=== PATIENT | female | born 1945 | race African-American/Black ===

== ENCOUNTER 2017-09-16 18:12 | Inpatient (IN) ==
[2017-09-16] MEDS ORDERED: ACETAMINOPHEN 325 MG TABLET PO ONE (18:40)
[2017-09-16] MEDS ORDERED: cefTRIAXone 1,000 MG in SODIUM CHLORIDE 0.9% 100 ML IV STA (18:50)
[2017-09-16] MEDS ORDERED: ACETAMINOPHEN 325 MG TABLET ONE (19:06)
[2017-09-16] MEDS ORDERED: cefTRIAXone 1,000 MG VIAL ONE (19:07)
[2017-09-16 19:46] LABS: Basophils % 0.3 % (0.0-0.8); Eosinophils # 0.1 10*3/uL (0.0-0.87); Eosinophils % 1.9 % (0.00-10.9); Hematocrit 32.9 VOL% (35.7-47.0); Immature Granulocytes % 0.5 %; Immature Granulocytes Absolute 0.03 #; Lymphocytes # 1.2 10*3/uL (1.4-4.0); Mean Corpuscular HGB Conc 33.4 GM/DL (32-36); Mean Corpuscular Hemoglobin 32 PG (27-34); Mean Corpuscular Volume 96.8 FL (87-102); Mean Platelet Volume 10.9 FL (9.6-12.0); Monocytes # 0.6 10*3/uL (0.11-0.8); Neutrophils # 4.4 10*3/uL (1.4-7.4); Neutrophils % 68.3 % (38.7-73.9); Platelet Count 224 T/CUMM (130-400); Red Cell Distribution Width 14.6 % (9.3-17.3); White Blood Count 6.4 T/CUMM (4-12)
[2017-09-16 20:15] LABS: Blood Urea Nitrogen 42 MG/DL (7-18); Glucose 88 MG/DL (74-106); Magnesium 1.6 MG/DL (1.8-2.4); Osmolality,Calculated 288.4 MOS/KG (273-304); Potassium 3.4 MMOL/L (3.5-5.1); Sodium 140 MMOL/L (136-145); Troponin I Only 0.065 NG/ML (0.00-0.045)
[2017-09-16] MEDS ORDERED: ONDANSETRON 4 MG/2 ML VIAL IV PRN (20:39)
[2017-09-16] MEDS ORDERED: ACETAMINOPHEN 325 MG TABLET PO PRN (20:39)
[2017-09-16] MEDS ORDERED: NIFEdipine 10 MG CAPSULE PO PRN (20:39)
[2017-09-16] MEDS: SODIUM CHLORIDE 0.9% 1,000 ML IV SCH (22:05)
[2017-09-16] MEDS: ENOXAPARIN 30 MG/0.3 ML SYRINGE SUBCUT SCH (22:06)
[2017-09-16] MEDS: CARVEDILOL 12.5 MG TABLET PO SCH (22:06)
[2017-09-16] MEDS: amLODIPine 10 MG TABLET PO SCH (22:06)
[2017-09-17 04:59] LABS: Basophils % 0.6 % (0.0-0.8); Eosinophils # 0.3 10*3/uL (0.0-0.87); Eosinophils % 5.4 % (0.00-10.9); Hematocrit 27.4 VOL% (35.7-47.0); Hemoglobin 8.9 GM/DL (12.0-16.0); Immature Granulocytes % 0.2 %; Immature Granulocytes Absolute 0.01 #; Lymphocytes # 1.2 10*3/uL (1.4-4.0); Lymphocytes % 24.4 % (21.3-54.2); Mean Corpuscular HGB Conc 32.5 GM/DL (32-36); Mean Corpuscular Hemoglobin 32 PG (27-34); Mean Corpuscular Volume 98.2 FL (87-102); Mean Platelet Volume 10.6 FL (9.6-12.0); Monocytes # 0.8 10*3/uL (0.11-0.8); Monocytes % 15.7 % (1.7-12.7); Neutrophils # 2.7 10*3/uL (1.4-7.4); Neutrophils % 53.7 % (38.7-73.9); Platelet Count 176 T/CUMM (130-400); Red Blood Count 2.79 MC/CUMM (3.8-5.5); Red Cell Distribution Width 14.6 % (9.3-17.3)
[2017-09-17 05:33] LABS: INR 1.1; PT Patient Result 11.5 SECS
[2017-09-17 05:44] LABS: Calcium 7.9 MG/DL (8.5-10.1); Osmolality,Calculated 292.3 MOS/KG (273-304); Potassium 2.9 MMOL/L (3.5-5.1)
[2017-09-17 05:50] LABS: Troponin I Only 0.089 NG/ML (0.00-0.045)
[2017-09-17 06:00] LABS: Band Neutrophils 1 % (0-10); Eosinophils 5 % (0-10); Hypochromasia 1+; Lymphocytes 19 % (20-55); Segmented Neutrophils 67 % (50-85); Total Cells Counted 100
[2017-09-17 06:01] LABS: Platelet Estimate Adequate
[2017-09-17] MEDS: CARVEDILOL 12.5 MG TABLET PO SCH ×2 (08:48→20:57)
[2017-09-17] MEDS: amLODIPine 10 MG TABLET PO SCH (08:48)
[2017-09-17] MEDS: cefTRIAXone 1,000 MG in SYRINGE 1 EACH IV SCH (08:49)
[2017-09-17] MEDS: SODIUM CHLORIDE 0.9% 1,000 ML IV SCH (10:46)
[2017-09-17] MEDS: POTASSIUM CHLORIDE 20 MEQ TABLET PO SCH ×3 (13:37→20:57)
[2017-09-17] MEDS: ENOXAPARIN 30 MG/0.3 ML SYRINGE SUBCUT SCH (20:57)
[2017-09-18] MEDS: SODIUM CHLORIDE 0.9% 1,000 ML IV SCH (01:47)
[2017-09-18] MEDS: POTASSIUM CHLORIDE 20 MEQ TABLET PO SCH (01:47)
[2017-09-18 02:35] LABS: Basophils % 0.6 % (0.0-0.8); Eosinophils # 0.5 10*3/uL (0.0-0.87); Eosinophils % 10.8 % (0.00-10.9); Hematocrit 25.7 VOL% (35.7-47.0); Hemoglobin 8.4 GM/DL (12.0-16.0); Immature Granulocytes % 0.2 %; Immature Granulocytes Absolute 0.01 #; Lymphocytes # 1.6 10*3/uL (1.4-4.0); Mean Corpuscular HGB Conc 32.7 GM/DL (32-36); Mean Corpuscular Hemoglobin 33 PG (27-34); Mean Platelet Volume 11.3 FL (9.6-12.0); Monocytes # 0.7 10*3/uL (0.11-0.8); Neutrophils # 2.2 10*3/uL (1.4-7.4); Neutrophils % 44.4 % (38.7-73.9); Platelet Count 179 T/CUMM (130-400); Red Blood Count 2.57 MC/CUMM (3.8-5.5); Red Cell Distribution Width 14.8 % (9.3-17.3)
[2017-09-18 03:04] LABS: Calcium 7.7 MG/DL (8.5-10.1); Magnesium 1.4 MG/DL (1.8-2.4); Osmolality,Calculated 295.8 MOS/KG (273-304); Potassium 3.6 MMOL/L (3.5-5.1)
[2017-09-18] MEDS: cefTRIAXone 1,000 MG in SYRINGE 1 EACH IV SCH (09:15)
[2017-09-18] MEDS: amLODIPine 10 MG TABLET PO SCH (09:16)
[2017-09-18] MEDS: CARVEDILOL 12.5 MG TABLET PO SCH ×2 (09:16→21:25)
[2017-09-18] MEDS ORDERED: MAGNESIUM SULF RIDER 4 GM in PREMIX 1 EACH IV ONE (12:06)
[2017-09-18] MEDS: FUROSEMIDE 40 MG/4 ML VIAL IV SCH (12:28)
[2017-09-18 15:28] LABS: Apearance,Urine CLEAR (Clear); Bacteria,Urine Occasional /HPF (Few); Bilirubin,Urine Negative (Negative); Blood, Urine Small mg/dL (Negative); Glucose,Urine (UA) Negative (Negative); Ketones,Urine Negative (Negative); Nitrite,Urine Negative (Negative); Protein,Urine Negative; RBC,Urine 1 /HPF (0-4); Squamous Epithelial Cell,Urine Occasional /HPF (0-10); Urine Color Straw (Yellow); Urine Specific Gravity 1.005 (1.001-1.035); Urine Urobilinogen < 2.0 EU/DL (0.2-1.0); WBC,Urine 5 /HPF (0-6)
[2017-09-18] MEDS: ASPIRIN 325 MG TABLET PO SCH (16:05)
[2017-09-18] MEDS: miSOPROStol 200 MCG TABLET PO SCH ×2 (16:10→21:25)
[2017-09-18] MEDS: ENOXAPARIN 30 MG/0.3 ML SYRINGE SUBCUT SCH (21:25)
[2017-09-19 05:33] LABS: Basophils % 0.4 % (0.0-0.8); Eosinophils # 0.6 10*3/uL (0.0-0.87); Eosinophils % 12.1 % (0.00-10.9); Hematocrit 27.2 VOL% (35.7-47.0); Hemoglobin 8.7 GM/DL (12.0-16.0); Immature Granulocytes % 0.4 %; Immature Granulocytes Absolute 0.02 #; Lymphocytes # 1.3 10*3/uL (1.4-4.0); Lymphocytes % 24.6 % (21.3-54.2); Mean Corpuscular Hemoglobin 32 PG (27-34); Mean Platelet Volume 11.2 FL (9.6-12.0); Monocytes # 0.6 10*3/uL (0.11-0.8); Monocytes % 11.7 % (1.7-12.7); Neutrophils # 2.7 10*3/uL (1.4-7.4); Neutrophils % 50.8 % (38.7-73.9); Platelet Count 186 T/CUMM (130-400); Red Blood Count 2.72 MC/CUMM (3.8-5.5); Red Cell Distribution Width 14.8 % (9.3-17.3); White Blood Count 5.3 T/CUMM (4-12)
[2017-09-19 05:58] LABS: Eosinophils 15 % (0-10); Lymphocytes 31 % (20-55); Segmented Neutrophils 46 % (50-85); Total Cells Counted 100
[2017-09-19 05:59] LABS: Giant Platelets Few; Hypochromasia 1+; Ovalocytes Slight; Platelet Estimate Normal
[2017-09-19 06:03] LABS: % Iron Saturation 17.3 % (18-50)
[2017-09-19 06:05] LABS: Risk Ratio 2.9; VLDL CHOLESTEROL 21.6 MG/DL
[2017-09-19 06:08] LABS: Calcium 7.9 MG/DL (8.5-10.1); Magnesium 2.6 MG/DL (1.8-2.4); Osmolality,Calculated 286.4 MOS/KG (273-304); Potassium 3.8 MMOL/L (3.5-5.1)
[2017-09-19 06:17] LABS: Folate 9.3 NG/ML (5.4-24.0)
[2017-09-19 06:19] LABS: Free T4 (Free Thyroxine) 0.97 NG/DL (0.76-1.46); Thyroid Stimulating Hormone 1.53 uIU/ml (0.358-3.74)
[2017-09-19] MEDS: miSOPROStol 200 MCG TABLET PO SCH ×5 (09:12→21:21)
[2017-09-19] MEDS: cefTRIAXone 1,000 MG in SYRINGE 1 EACH IV SCH (09:42)
[2017-09-19] MEDS: FUROSEMIDE 40 MG/4 ML VIAL IV SCH (11:00)
[2017-09-19] MEDS: CARVEDILOL 12.5 MG TABLET PO SCH ×2 (11:01→21:21)
[2017-09-19] MEDS: amLODIPine 10 MG TABLET PO SCH (11:01)
[2017-09-19] MEDS: LACTATED RINGERS 1,000 ML IV SCH (12:05)
[2017-09-19] MEDS ORDERED: NEOMYCIN/POLYMYXIN IRRIG SOLN 1 ML AMP BLADDERIRR ONE (12:09)
[2017-09-19] MEDS: hydrALAZINE 25 MG TABLET PO SCH ×3 (13:00→21:21)
[2017-09-19] MEDS ORDERED: MIDAZOLAM 2 MG/2 ML VIAL ONE (13:08)
[2017-09-19] MEDS ORDERED: SEVOFLURANE 1 UNIT/15 MINUTE INH ONE (13:08)
[2017-09-19] MEDS ORDERED: PROPOFOL 200 MG/20 ML VIAL IV ONE (13:08)
[2017-09-19] MEDS ORDERED: fentaNYL 100 MCG/2 ML VIAL ONE (13:09)
[2017-09-19] MEDS ORDERED: ePHEDrine 50 MG/ML AMP ONE (13:09)
[2017-09-19] MEDS ORDERED: ONDANSETRON 4 MG/2 ML VIAL ONE (13:09)
[2017-09-19] MEDS: ASPIRIN 325 MG TABLET PO SCH (14:14)
[2017-09-19 15:02] LABS: Troponin I Only 0.028 NG/ML (0.00-0.045)
[2017-09-19 15:56] LABS: Troponin I Only 0.024 NG/ML (0.00-0.045)
[2017-09-19] MEDS: ENOXAPARIN 30 MG/0.3 ML SYRINGE SUBCUT SCH (21:21)
[2017-09-20 05:55] LABS: Basophils % 0.5 % (0.0-0.8); Eosinophils # 0.5 10*3/uL (0.0-0.87); Eosinophils % 7.8 % (0.00-10.9); Hematocrit 28.4 VOL% (35.7-47.0); Hemoglobin 9.4 GM/DL (12.0-16.0); Immature Granulocytes % 0.5 %; Immature Granulocytes Absolute 0.03 #; Lymphocytes % 16.3 % (21.3-54.2); Mean Corpuscular HGB Conc 33.1 GM/DL (32-36); Mean Corpuscular Hemoglobin 32 PG (27-34); Mean Corpuscular Volume 96.6 FL (87-102); Mean Platelet Volume 10.9 FL (9.6-12.0); Monocytes # 0.9 10*3/uL (0.11-0.8); Monocytes % 14.9 % (1.7-12.7); Neutrophils # 3.5 10*3/uL (1.4-7.4); Platelet Count 206 T/CUMM (130-400); Red Blood Count 2.94 MC/CUMM (3.8-5.5); Red Cell Distribution Width 14.6 % (9.3-17.3); White Blood Count 5.9 T/CUMM (4-12)
[2017-09-20 06:27] LABS: Calcium 8.3 MG/DL (8.5-10.1); Magnesium 2.2 MG/DL (1.8-2.4); Potassium 4.1 MMOL/L (3.5-5.1)
[2017-09-20] MEDS: ASPIRIN 325 MG TABLET PO SCH (10:10)
[2017-09-20] MEDS: hydrALAZINE 25 MG TABLET PO SCH ×3 (10:10→20:55)
[2017-09-20] MEDS: FUROSEMIDE 40 MG/4 ML VIAL IV SCH (10:10)
[2017-09-20] MEDS: amLODIPine 10 MG TABLET PO SCH (10:10)
[2017-09-20] MEDS: CARVEDILOL 12.5 MG TABLET PO SCH ×2 (10:10→20:55)
[2017-09-20] MEDS: miSOPROStol 200 MCG TABLET PO SCH (10:34)
[2017-09-20] MEDS: cefTRIAXone 1,000 MG in SYRINGE 1 EACH IV SCH (15:34)
[2017-09-20] MEDS: LACTATED RINGERS 1,000 ML IV SCH (15:52)
[2017-09-21 03:32] LABS: Basophils % 0.3 % (0.0-0.8); Eosinophils # 0.5 10*3/uL (0.0-0.87); Eosinophils % 6.9 % (0.00-10.9); Hematocrit 28.1 VOL% (35.7-47.0); Hemoglobin 9.1 GM/DL (12.0-16.0); Immature Granulocytes % 0.6 %; Immature Granulocytes Absolute 0.04 #; Lymphocytes # 1.1 10*3/uL (1.4-4.0); Lymphocytes % 16.6 % (21.3-54.2); Mean Corpuscular HGB Conc 32.4 GM/DL (32-36); Mean Corpuscular Hemoglobin 32 PG (27-34); Mean Platelet Volume 11.4 FL (9.6-12.0); Monocytes % 15.1 % (1.7-12.7); Neutrophils % 60.5 % (38.7-73.9); Platelet Count 201 T/CUMM (130-400); Red Blood Count 2.81 MC/CUMM (3.8-5.5); Red Cell Distribution Width 14.6 % (9.3-17.3); White Blood Count 6.6 T/CUMM (4-12)
[2017-09-21 04:18] LABS: Calcium 8.2 MG/DL (8.5-10.1); Magnesium 2.1 MG/DL (1.8-2.4); Osmolality,Calculated 282.8 MOS/KG (273-304); Potassium 3.9 MMOL/L (3.5-5.1)
[2017-09-21] MEDS: amLODIPine 10 MG TABLET PO SCH (10:18)
[2017-09-21] MEDS: hydrALAZINE 25 MG TABLET PO SCH (10:18)
[2017-09-21] MEDS: CARVEDILOL 12.5 MG TABLET PO SCH (10:19)
[2017-09-21] MEDS: cefTRIAXone 1,000 MG in SYRINGE 1 EACH IV SCH (10:19)
[2017-09-21] MEDS ORDERED: MAGNESIUM CITRATE 300 ML BOTTLE PO ONE (11:11)
[2017-09-21 12:13] VITALS: BP 151/77
== END 2017-09-21 14:11 | disposition swing bed (61) | DRG 281 ==
LOC: N.ED 18:12 → N.EDINP 18:58 → SUATTDRO 18:58 → N.TELEN 19:25
PROVIDERS: ADMIT Internal Medicine; ATTEND Internal Medicine

== ENCOUNTER 2018-06-16 15:21 | Inpatient (IN) ==
[2018-06-16 17:47] LABS: ABG Base Excess -8.9 MMOL/L (-2.5-2.5); ABG HCO3 17.3 MMOL/L (20-26); ABG Oxygen Saturation 99.9 % (95-100); ABG PCO2 31.3 MM HG (35-48); ABG PH 7.323 (7.35-7.45); ABG TCO2 14.9 MMOL/L (23-27)
[2018-06-16] MEDS ORDERED: ONDANSETRON 4 MG/2 ML VIAL IV PRN (18:02)
[2018-06-16] MEDS ORDERED: MORPHINE 4 MG/1 ML VIAL IV PRN (18:02)
[2018-06-16] MEDS: SODIUM CHLORIDE 0.9% 1,000 ML IV SCH (18:30)
[2018-06-16] MEDS: niCARdipine INJ 25 MG in SODIUM CHLORIDE 0.9% 240 ML IV PRN ×2 (18:30→20:52)
[2018-06-16 19:02] LABS: Basophils # 0.1 10*3/uL (0.0-0.2); Basophils % 0.8 % (0.0-0.8); Eosinophils # 0.3 10*3/uL (0.0-0.87); Eosinophils % 4.2 % (0.00-10.9); Hematocrit 31.7 VOL% (35.7-47.0); Hemoglobin 10.2 GM/DL (12.0-16.0); Immature Granulocytes % 0.3 %; Immature Granulocytes Absolute 0.02 #; Lymphocytes % 15.9 % (21.3-54.2); Mean Corpuscular HGB Conc 32.2 GM/DL (32-36); Mean Corpuscular Hemoglobin 33 PG (27-34); Mean Platelet Volume 10.7 FL (9.6-12.0); Monocytes # 0.6 10*3/uL (0.11-0.8); Monocytes % 9.7 % (1.7-12.7); Neutrophils # 4.4 10*3/uL (1.4-7.4); Neutrophils % 69.1 % (38.7-73.9); Platelet Count 203 T/CUMM (130-400); Red Blood Count 3.14 MC/CUMM (3.8-5.5); Red Cell Distribution Width 14.6 % (9.3-17.3); White Blood Count 6.4 T/CUMM (4-12)
[2018-06-16 19:10] LABS: Apearance,Urine Slightly Hazy (Clear); Bacteria,Urine Occasional /HPF (Few); Bilirubin,Urine Negative (Negative); Blood, Urine Moderate mg/dL (Negative); Glucose,Urine (UA) Negative (Negative); Ketones,Urine Negative (Negative); Nitrite,Urine Negative (Negative); Protein,Urine 100 MG/DL; RBC,Urine 25 /HPF (0-4); Urine Color Straw (Yellow); Urine Specific Gravity 1.006 (1.001-1.035); Urine Urobilinogen < 2.0 EU/DL (0.2-1.0); WBC,Urine 80 /HPF (0-6)
[2018-06-16 19:25] LABS: Lactic Acid 1.2 MMOL/L (0.4-2.0)
[2018-06-16 19:26] LABS: Albumin 3.4 G/DL (3.4-5.0); Bilirubin,Total 0.7 MG/DL (0.2-1.0); Calcium 8.3 MG/DL (8.5-10.1); Osmolality,Calculated 295.1 MOS/KG (273-304); Potassium 3.2 MMOL/L (3.5-5.1); Total Protein 8.3 G/DL (6.4-8.3); Troponin I 0.021 NG/ML (0.00-0.045)
[2018-06-16] MEDS: ENOXAPARIN 30 MG/0.3 ML SYRINGE SUBCUT SCH (20:10)
[2018-06-16] MEDS: hydrALAZINE 25 MG TABLET PER TUBE SCH (20:11)
[2018-06-16] MEDS: CARVEDILOL 12.5 MG TABLET PER TUBE SCH (20:11)
[2018-06-16] MEDS: RANITIDINE 150 MG/10 ML 30 ML BOTTLE PER TUBE SCH (20:11)
[2018-06-16] MEDS ORDERED: PROPOFOL 1,000 MG/100 ML BOTTLE IV ONE (21:02)
[2018-06-16] MEDS: PROPOFOL 1,000 MG/100 ML BOTTLE IV SCH (21:14)
[2018-06-16] MEDS: CIPROFLOXACIN INJ 400 MG in PREMIX 1 EACH IV SCH (21:35)
[2018-06-16] MEDS ORDERED: DEXTROSE 50% 25 GM/50 ML VIAL IV PRN (21:51)
[2018-06-16] MEDS: POTASSIUM CHLORIDE RIDER 10 MEQ in PREMIX 1 EACH IV PRN ×2 (22:26→23:27)
[2018-06-17] MEDS: POTASSIUM CHLORIDE RIDER 10 MEQ in PREMIX 1 EACH IV PRN ×2 (00:33→01:40)
[2018-06-17 04:07] LABS: ABG Base Excess -9.6 MMOL/L (-2.5-2.5); ABG HCO3 16.8 MMOL/L (20-26); ABG Oxygen Saturation 99.6 % (95-100); ABG PCO2 34.7 MM HG (35-48); ABG PH 7.282 (7.35-7.45); ABG TCO2 15.2 MMOL/L (23-27)
[2018-06-17 04:22] LABS: Basophils % 0.4 % (0.0-0.8); Eosinophils # 0.3 10*3/uL (0.0-0.87); Eosinophils % 3.5 % (0.00-10.9); Hematocrit 28.2 VOL% (35.7-47.0); Immature Granulocytes % 0.4 %; Immature Granulocytes Absolute 0.03 #; Lymphocytes # 0.7 10*3/uL (1.4-4.0); Lymphocytes % 10.1 % (21.3-54.2); Mean Corpuscular HGB Conc 31.9 GM/DL (32-36); Mean Corpuscular Hemoglobin 32 PG (27-34); Mean Corpuscular Volume 100.7 FL (87-102); Mean Platelet Volume 10.9 FL (9.6-12.0); Monocytes # 0.7 10*3/uL (0.11-0.8); Monocytes % 9.4 % (1.7-12.7); Neutrophils # 5.4 10*3/uL (1.4-7.4); Neutrophils % 76.2 % (38.7-73.9); Platelet Count 189 T/CUMM (130-400); Red Cell Distribution Width 14.6 % (9.3-17.3); White Blood Count 7.1 T/CUMM (4-12)
[2018-06-17 04:44] LABS: INR 1.1; PT Patient Result 11.4 SECS; Partial Thromboplastin Time 31.5 SECS (0-40)
[2018-06-17 04:46] LABS: Calcium 7.5 MG/DL (8.5-10.1); Osmolality,Calculated 294.1 MOS/KG (273-304)
[2018-06-17 04:47] LABS: Troponin I 0.358 NG/ML (0.00-0.045)
[2018-06-17 04:53] LABS: Risk Ratio 2.67; Thyroid Stimulating Hormone 2.1 uIU/ml (0.358-3.74); VLDL CHOLESTEROL 15.6 MG/DL
[2018-06-17] MEDS: hydrALAZINE 25 MG TABLET PER TUBE SCH ×3 (09:30→20:09)
[2018-06-17] MEDS: amLODIPine 10 MG TABLET PER TUBE SCH (09:30)
[2018-06-17] MEDS: cloNIDine 0.1 MG TABLET PER TUBE PRN (09:30)
[2018-06-17] MEDS: RANITIDINE 150 MG/10 ML 30 ML BOTTLE PER TUBE SCH ×2 (09:32→20:11)
[2018-06-17] MEDS: CARVEDILOL 12.5 MG TABLET PER TUBE SCH ×2 (12:57→20:09)
[2018-06-17] MEDS: SODIUM CHLORIDE 0.9% 1,000 ML IV SCH (14:41)
[2018-06-17] MEDS: CIPROFLOXACIN INJ 400 MG in PREMIX 1 EACH IV SCH (18:11)
[2018-06-17] MEDS: PROPOFOL 1,000 MG/100 ML BOTTLE IV SCH (19:22)
[2018-06-17] MEDS: ENOXAPARIN 30 MG/0.3 ML SYRINGE SUBCUT SCH (20:09)
[2018-06-18 04:29] LABS: ABG Base Excess -11.1 MMOL/L (-2.5-2.5); ABG HCO3 15.6 MMOL/L (20-26); ABG Oxygen Saturation 99.2 % (95-100); ABG PCO2 30.9 MM HG (35-48); ABG PH 7.283 (7.35-7.45); ABG TCO2 13.6 MMOL/L (23-27)
[2018-06-18 05:13] LABS: Basophils % 0.6 % (0.0-0.8); Eosinophils # 0.3 10*3/uL (0.0-0.87); Eosinophils % 4.9 % (0.00-10.9); Hematocrit 27.5 VOL% (35.7-47.0); Hemoglobin 8.6 GM/DL (12.0-16.0); Immature Granulocytes % 0.4 %; Immature Granulocytes Absolute 0.03 #; Lymphocytes # 0.8 10*3/uL (1.4-4.0); Lymphocytes % 11.9 % (21.3-54.2); Mean Corpuscular HGB Conc 31.3 GM/DL (32-36); Mean Corpuscular Hemoglobin 32 PG (27-34); Mean Corpuscular Volume 101.9 FL (87-102); Monocytes # 0.9 10*3/uL (0.11-0.8); Monocytes % 13.1 % (1.7-12.7); Neutrophils # 4.7 10*3/uL (1.4-7.4); Neutrophils % 69.1 % (38.7-73.9); Platelet Count 184 T/CUMM (130-400); Red Cell Distribution Width 14.7 % (9.3-17.3); White Blood Count 6.9 T/CUMM (4-12)
[2018-06-18 05:39] LABS: Calcium 7.5 MG/DL (8.5-10.1); Osmolality,Calculated 293.1 MOS/KG (273-304); Potassium 3.8 MMOL/L (3.5-5.1)
[2018-06-18] MEDS: cloNIDine 0.1 MG TABLET PER TUBE PRN (07:38)
[2018-06-18] MEDS: amLODIPine 10 MG TABLET PER TUBE SCH (08:00)
[2018-06-18] MEDS: CARVEDILOL 12.5 MG TABLET PER TUBE SCH ×2 (08:00→20:18)
[2018-06-18] MEDS: hydrALAZINE 25 MG TABLET PER TUBE SCH ×3 (08:00→20:18)
[2018-06-18] MEDS: PROPOFOL 1,000 MG/100 ML BOTTLE IV SCH ×2 (08:19→22:01)
[2018-06-18] MEDS: POTASSIUM CHLORIDE RIDER 20 MEQ in PREMIX 1 EACH IV PRN (08:28)
[2018-06-18] MEDS ORDERED: MAGNESIUM SULF RIDER 1 GM in PREMIX 1 EACH IV ONE ×2 (09:00→10:00)
[2018-06-18] MEDS ORDERED: PNEUMOCOCCAL VACCINE (13 VALENT) 0.5 ML SYRINGE IM ONE (09:00)
[2018-06-18] MEDS ORDERED: MAGNESIUM SULF RIDER 100 ML IV ONE (09:55)
[2018-06-18] MEDS: SODIUM BICARB INJ 50 MEQ in DEXTROSE 5% 1,000 ML IV SCH ×2 (10:02→21:16)
[2018-06-18] MEDS: RANITIDINE 150 MG/10 ML 30 ML BOTTLE PER TUBE SCH ×2 (10:03→20:20)
[2018-06-18] MEDS: CIPROFLOXACIN INJ 400 MG in PREMIX 1 EACH IV SCH (18:49)
[2018-06-18] MEDS: ENOXAPARIN 30 MG/0.3 ML SYRINGE SUBCUT SCH (20:18)
[2018-06-19] MEDS: PROPOFOL 1,000 MG/100 ML BOTTLE IV SCH (05:02)
[2018-06-19] MEDS: DEXMEDETOMIDINE 200 MCG in SODIUM CHLORIDE 0.9% 48 ML IV PRN ×3 (07:54→21:37)
[2018-06-19] MEDS: SODIUM BICARB INJ 50 MEQ in DEXTROSE 5% 1,000 ML IV SCH ×2 (07:55→17:41)
[2018-06-19] MEDS: amLODIPine 10 MG TABLET PER TUBE SCH (08:02)
[2018-06-19] MEDS: hydrALAZINE 25 MG TABLET PER TUBE SCH ×3 (08:03→21:37)
[2018-06-19] MEDS: CARVEDILOL 12.5 MG TABLET PER TUBE SCH ×2 (08:03→20:09)
[2018-06-19] MEDS: RANITIDINE 150 MG/10 ML 30 ML BOTTLE PER TUBE SCH ×2 (08:03→21:37)
[2018-06-19 08:59] LABS: ABG Base Excess -7.4 MMOL/L (-2.5-2.5); ABG HCO3 18.4 MMOL/L (20-26); ABG Oxygen Saturation 98.9 % (95-100); ABG PH 7.345 (7.35-7.45); ABG TCO2 16.2 MMOL/L (23-27)
[2018-06-19 09:24] LABS: Calcium 7.2 MG/DL (8.5-10.1); Osmolality,Calculated 282.8 MOS/KG (273-304); Potassium 3.7 MMOL/L (3.5-5.1)
[2018-06-19] MEDS: POTASSIUM CHLORIDE RIDER 20 MEQ in PREMIX 1 EACH IV PRN (09:37)
[2018-06-19] MEDS ORDERED: MAGNESIUM SULF RIDER 1 GM in PREMIX 1 EACH IV ONE (10:00)
[2018-06-19] MEDS: CIPROFLOXACIN INJ 400 MG in PREMIX 1 EACH IV SCH (17:30)
[2018-06-19] MEDS: ENOXAPARIN 30 MG/0.3 ML SYRINGE SUBCUT SCH (21:37)
[2018-06-20] MEDS: DEXMEDETOMIDINE 200 MCG in SODIUM CHLORIDE 0.9% 48 ML IV PRN (03:59)
[2018-06-20] MEDS: SODIUM BICARB INJ 50 MEQ in DEXTROSE 5% 1,000 ML IV SCH (04:53)
[2018-06-20 05:23] LABS: Basophils % 0.5 % (0.0-0.8); Eosinophils # 0.5 10*3/uL (0.0-0.87); Eosinophils % 8.9 % (0.00-10.9); Hematocrit 26.2 VOL% (35.7-47.0); Hemoglobin 8.6 GM/DL (12.0-16.0); Immature Granulocytes % 0.5 %; Immature Granulocytes Absolute 0.03 #; Lymphocytes # 0.7 10*3/uL (1.4-4.0); Lymphocytes % 10.7 % (21.3-54.2); Mean Corpuscular HGB Conc 32.8 GM/DL (32-36); Mean Corpuscular Hemoglobin 32 PG (27-34); Mean Corpuscular Volume 97.4 FL (87-102); Mean Platelet Volume 11.2 FL (9.6-12.0); Monocytes # 0.9 10*3/uL (0.11-0.8); Monocytes % 15.3 % (1.7-12.7); Neutrophils # 3.9 10*3/uL (1.4-7.4); Neutrophils % 64.1 % (38.7-73.9); Platelet Count 177 T/CUMM (130-400); Red Blood Count 2.69 MC/CUMM (3.8-5.5); Red Cell Distribution Width 14.3 % (9.3-17.3); White Blood Count 6.1 T/CUMM (4-12)
[2018-06-20 05:47] LABS: Calcium 7.5 MG/DL (8.5-10.1); Osmolality,Calculated 272.7 MOS/KG (273-304); Potassium 3.9 MMOL/L (3.5-5.1)
[2018-06-20 05:51] LABS: Prealbumin 13.7 MG/DL (20-40)
[2018-06-20] MEDS: amLODIPine 10 MG TABLET PER TUBE SCH (08:13)
[2018-06-20] MEDS: RANITIDINE 150 MG/10 ML 30 ML BOTTLE PER TUBE SCH ×2 (08:13→21:34)
[2018-06-20] MEDS: hydrALAZINE 25 MG TABLET PER TUBE SCH ×3 (08:13→21:31)
[2018-06-20] MEDS: CARVEDILOL 12.5 MG TABLET PER TUBE SCH ×2 (08:14→21:31)
[2018-06-20] MEDS ORDERED: PNEUMOCOCCAL VACCINE (13 VALENT) 0.5 ML SYRINGE IM ONE (09:00)
[2018-06-20 10:03] LABS: ABG Base Excess -4.4 MMOL/L (-2.5-2.5); ABG HCO3 20.8 MMOL/L (20-26); ABG Oxygen Saturation 98.9 % (95-100); ABG PH 7.398 (7.35-7.45); ABG TCO2 18.1 MMOL/L (23-27)
[2018-06-20] MEDS: SODIUM CHLORIDE 0.9% 1,000 ML IV SCH (10:38)
[2018-06-20] MEDS: cloNIDine 0.1 MG TABLET PER TUBE PRN (15:14)
[2018-06-20] MEDS: CIPROFLOXACIN INJ 400 MG in PREMIX 1 EACH IV SCH (17:30)
[2018-06-20] MEDS: ENOXAPARIN 30 MG/0.3 ML SYRINGE SUBCUT SCH (21:31)
[2018-06-21] MEDS: SODIUM CHLORIDE 0.9% 1,000 ML IV SCH ×2 (00:22→13:48)
[2018-06-21 03:32] LABS: Calcium 7.7 MG/DL (8.5-10.1); Osmolality,Calculated 279.1 MOS/KG (273-304); Potassium 4.3 MMOL/L (3.5-5.1)
[2018-06-21] MEDS: cloNIDine 0.1 MG TABLET PER TUBE PRN ×2 (04:23→17:59)
[2018-06-21] MEDS: CARVEDILOL 12.5 MG TABLET PER TUBE SCH ×2 (08:48→20:17)
[2018-06-21] MEDS: hydrALAZINE 25 MG TABLET PER TUBE SCH ×3 (08:48→20:17)
[2018-06-21] MEDS: amLODIPine 10 MG TABLET PER TUBE SCH (08:48)
[2018-06-21] MEDS: RANITIDINE 150 MG/10 ML 30 ML BOTTLE PER TUBE SCH ×2 (08:49→20:17)
[2018-06-21] MEDS: chlordiazePOXIDE 10 MG CAPSULE PO SCH ×4 (10:36→20:17)
[2018-06-21] MEDS: CIPROFLOXACIN INJ 400 MG in PREMIX 1 EACH IV SCH (19:20)
[2018-06-21] MEDS: ENOXAPARIN 30 MG/0.3 ML SYRINGE SUBCUT SCH (20:17)
[2018-06-22] MEDS: SODIUM CHLORIDE 0.9% 1,000 ML IV SCH (04:17)
[2018-06-22] MEDS: chlordiazePOXIDE 10 MG CAPSULE PO SCH ×3 (08:40→21:07)
[2018-06-22] MEDS: RANITIDINE 150 MG/10 ML 30 ML BOTTLE PER TUBE SCH ×2 (08:48→22:43)
[2018-06-22] MEDS: CARVEDILOL 12.5 MG TABLET PER TUBE SCH ×2 (08:49→21:08)
[2018-06-22] MEDS: hydrALAZINE 25 MG TABLET PER TUBE SCH ×3 (08:49→21:08)
[2018-06-22] MEDS: amLODIPine 10 MG TABLET PER TUBE SCH (08:51)
[2018-06-22 10:57] LABS: Osmolality,Calculated 282.7 MOS/KG (273-304); Potassium 4.8 MMOL/L (3.5-5.1)
[2018-06-22] MEDS: ENOXAPARIN 30 MG/0.3 ML SYRINGE SUBCUT SCH (21:11)
[2018-06-23 06:42] LABS: Basophils % 0.6 % (0.0-0.8); Eosinophils # 0.5 10*3/uL (0.0-0.87); Eosinophils % 7.9 % (0.00-10.9); Hematocrit 23.3 VOL% (35.7-47.0); Hemoglobin 7.3 GM/DL (12.0-16.0); Immature Granulocytes % 0.6 %; Immature Granulocytes Absolute 0.04 #; Lymphocytes # 1.1 10*3/uL (1.4-4.0); Lymphocytes % 17.8 % (21.3-54.2); Mean Corpuscular HGB Conc 31.3 GM/DL (32-36); Mean Corpuscular Hemoglobin 32 PG (27-34); Mean Corpuscular Volume 100.4 FL (87-102); Mean Platelet Volume 11.3 FL (9.6-12.0); Monocytes # 1.1 10*3/uL (0.11-0.8); Monocytes % 17.1 % (1.7-12.7); Neutrophils # 3.5 10*3/uL (1.4-7.4); Platelet Count 190 T/CUMM (130-400); Red Blood Count 2.32 MC/CUMM (3.8-5.5); Red Cell Distribution Width 14.6 % (9.3-17.3); White Blood Count 6.2 T/CUMM (4-12)
[2018-06-23 06:56] LABS: Osmolality,Calculated 285.4 MOS/KG (273-304); Potassium 4.4 MMOL/L (3.5-5.1)
[2018-06-23 07:47] LABS: Eosinophils 7 % (0-10); Lymphocytes 23 % (20-55); Segmented Neutrophils 53 % (50-85); Total Cells Counted 100
[2018-06-23 07:48] LABS: Macrocytosis Slight; Platelet Estimate Adequate
[2018-06-23] MEDS: CARVEDILOL 12.5 MG TABLET PER TUBE SCH ×2 (08:05→21:39)
[2018-06-23] MEDS: chlordiazePOXIDE 10 MG CAPSULE PO SCH ×3 (08:05→21:39)
[2018-06-23] MEDS: amLODIPine 10 MG TABLET PO SCH (08:06)
[2018-06-23] MEDS: hydrALAZINE 25 MG TABLET PER TUBE SCH ×3 (08:19→21:39)
[2018-06-23] MEDS: RANITIDINE 150 MG/10 ML 30 ML BOTTLE PER TUBE SCH ×2 (08:19→21:49)
[2018-06-23] MEDS ORDERED: SODIUM CHLORIDE 0.9% 1,000 ML IV PRN (09:52)
[2018-06-23] MEDS ORDERED: FUROSEMIDE 20 MG/2 ML VIAL IV ONE ×3 (09:54→18:54)
[2018-06-23] MEDS ORDERED: TUBERCULIN SKIN TEST 0.1 ML SYRINGE INTRADERM ONE (10:11)
[2018-06-23] MEDS ORDERED: methylPREDNISolone SOD SUC 125 MG/2 ML VIAL IV ONE (18:54)
[2018-06-23] MEDS ORDERED: ACETAMINOPHEN 325 MG TABLET PO ONE (18:54)
[2018-06-23] MEDS: ENOXAPARIN 30 MG/0.3 ML SYRINGE SUBCUT SCH (21:36)
[2018-06-23] MEDS: ALBUTEROL 2.5 MG/3 ML NEB RESP TX SCH (22:06)
[2018-06-23 22:55] LABS: Hematocrit 35.8 VOL% (35.7-47.0)
[2018-06-23 23:00] LABS: Hemoglobin 11.5 GM/DL (12.0-16.0)
[2018-06-24 04:00] LABS: Basophils % 0.3 % (0.0-0.8); Eosinophils % 0.1 % (0.00-10.9); Hematocrit 35.4 VOL% (35.7-47.0); Hemoglobin 11.5 GM/DL (12.0-16.0); Immature Granulocytes % 0.8 %; Immature Granulocytes Absolute 0.06 #; Lymphocytes # 0.4 10*3/uL (1.4-4.0); Lymphocytes % 5.5 % (21.3-54.2); Mean Corpuscular HGB Conc 32.5 GM/DL (32-36); Mean Corpuscular Hemoglobin 31 PG (27-34); Mean Corpuscular Volume 95.9 FL (87-102); Mean Platelet Volume 11.2 FL (9.6-12.0); Monocytes # 0.1 10*3/uL (0.11-0.8); Monocytes % 1.5 % (1.7-12.7); Neutrophils # 6.7 10*3/uL (1.4-7.4); Neutrophils % 91.8 % (38.7-73.9); Platelet Count 224 T/CUMM (130-400); Red Blood Count 3.69 MC/CUMM (3.8-5.5); Red Cell Distribution Width 15.5 % (9.3-17.3); White Blood Count 7.3 T/CUMM (4-12)
[2018-06-24 04:20] LABS: Albumin 2.6 G/DL (3.4-5.0); Bilirubin,Total 0.9 MG/DL (0.2-1.0); Calcium 8.7 MG/DL (8.5-10.1); Osmolality,Calculated 284.8 MOS/KG (273-304); Potassium 4.4 MMOL/L (3.5-5.1); Total Protein 7.9 G/DL (6.4-8.3)
[2018-06-24 04:25] LABS: Band Neutrophils 1 % (0-10); Hypochromasia 1+; Lymphocytes 5 % (20-55); Microcytosis 1+; Platelet Estimate Normal; Segmented Neutrophils 91 % (50-85); Total Cells Counted 100
[2018-06-24] MEDS: ALBUTEROL 2.5 MG/3 ML NEB RESP TX SCH ×3 (07:24→23:05)
[2018-06-24] MEDS: chlordiazePOXIDE 10 MG CAPSULE PO SCH ×3 (09:09→20:57)
[2018-06-24] MEDS: CARVEDILOL 12.5 MG TABLET PER TUBE SCH ×2 (09:09→20:57)
[2018-06-24] MEDS: hydrALAZINE 25 MG TABLET PER TUBE SCH ×3 (09:09→20:57)
[2018-06-24] MEDS: amLODIPine 10 MG TABLET PO SCH (09:10)
[2018-06-24] MEDS: RANITIDINE 150 MG/10 ML 30 ML BOTTLE PER TUBE SCH ×2 (09:11→20:58)
[2018-06-24] MEDS: ENOXAPARIN 30 MG/0.3 ML SYRINGE SUBCUT SCH (21:02)
[2018-06-25 06:25] LABS: Basophils % 0.1 % (0.0-0.8); Eosinophils # 0.1 10*3/uL (0.0-0.87); Eosinophils % 1.3 % (0.00-10.9); Hematocrit 31.8 VOL% (35.7-47.0); Hemoglobin 10.1 GM/DL (12.0-16.0); Immature Granulocytes % 0.4 %; Immature Granulocytes Absolute 0.04 #; Lymphocytes # 1.3 10*3/uL (1.4-4.0); Lymphocytes % 13.8 % (21.3-54.2); Mean Corpuscular HGB Conc 31.8 GM/DL (32-36); Mean Corpuscular Hemoglobin 31 PG (27-34); Mean Corpuscular Volume 96.4 FL (87-102); Mean Platelet Volume 10.8 FL (9.6-12.0); Monocytes # 1.2 10*3/uL (0.11-0.8); Monocytes % 13.2 % (1.7-12.7); Neutrophils # 6.5 10*3/uL (1.4-7.4); Neutrophils % 71.2 % (38.7-73.9); Platelet Count 211 T/CUMM (130-400); Red Cell Distribution Width 15.1 % (9.3-17.3); White Blood Count 9.2 T/CUMM (4-12)
[2018-06-25 06:29] LABS: PT Patient Result 10.8 SECS
[2018-06-25 06:53] LABS: Alanine Aminotransferase 23 U/L (13-56); Albumin 2.4 G/DL (3.4-5.0); Alkaline Phosphatase 92 U/L (45-117); Aspartate Amino Transferase 30 U/L (0-37); Bilirubin,Total < 0.39 MG/DL (0.2-1.0); Blood Urea Nitrogen 45 MG/DL (7-18); Calcium 7.8 MG/DL (8.5-10.1); Glucose 93 MG/DL (74-106); Osmolality,Calculated 294.1 MOS/KG (273-304); Sodium 142 MMOL/L (136-145)
[2018-06-25] MEDS: ALBUTEROL 2.5 MG/3 ML NEB RESP TX SCH ×2 (07:18→13:42)
[2018-06-25] MEDS: hydrALAZINE 25 MG TABLET PER TUBE SCH ×3 (08:58→20:48)
[2018-06-25] MEDS: chlordiazePOXIDE 10 MG CAPSULE PO SCH ×3 (08:58→20:48)
[2018-06-25] MEDS: CARVEDILOL 12.5 MG TABLET PER TUBE SCH ×2 (08:58→20:48)
[2018-06-25] MEDS: amLODIPine 10 MG TABLET PO SCH (08:59)
[2018-06-25] MEDS: RANITIDINE 150 MG/10 ML 30 ML BOTTLE PER TUBE SCH ×2 (10:50→22:29)
[2018-06-25] MEDS: ENOXAPARIN 30 MG/0.3 ML SYRINGE SUBCUT SCH (20:48)
[2018-06-26] MEDS: ALBUTEROL 2.5 MG/3 ML NEB RESP TX SCH ×4 (00:38→23:06)
[2018-06-26 03:37] LABS: Basophils # 0.1 10*3/uL (0.0-0.2); Eosinophils # 0.8 10*3/uL (0.0-0.87); Eosinophils % 8.1 % (0.00-10.9); Hematocrit 36.2 VOL% (35.7-47.0); Hemoglobin 11.5 GM/DL (12.0-16.0); Immature Granulocytes % 0.8 %; Immature Granulocytes Absolute 0.08 #; Lymphocytes # 1.5 10*3/uL (1.4-4.0); Lymphocytes % 15.2 % (21.3-54.2); Mean Corpuscular HGB Conc 31.8 GM/DL (32-36); Mean Corpuscular Hemoglobin 31 PG (27-34); Mean Corpuscular Volume 96.8 FL (87-102); Mean Platelet Volume 11.2 FL (9.6-12.0); Monocytes # 1.5 10*3/uL (0.11-0.8); Monocytes % 14.9 % (1.7-12.7); Platelet Count 272 T/CUMM (130-400); Red Blood Count 3.74 MC/CUMM (3.8-5.5); Red Cell Distribution Width 14.8 % (9.3-17.3)
[2018-06-26 04:05] LABS: Albumin 2.7 G/DL (3.4-5.0); Bilirubin,Total 0.4 MG/DL (0.2-1.0); Calcium 8.4 MG/DL (8.5-10.1); Osmolality,Calculated 292.1 MOS/KG (273-304); Potassium 4.3 MMOL/L (3.5-5.1); Total Protein 7.6 G/DL (6.4-8.3)
[2018-06-26] MEDS ORDERED: chlordiazePOXIDE 10 MG CAPSULE PO SCH (08:35)
[2018-06-26] MEDS: hydrALAZINE 25 MG TABLET PER TUBE SCH ×3 (14:57→20:24)
[2018-06-26] MEDS: RANITIDINE 150 MG/10 ML 30 ML BOTTLE PER TUBE SCH ×2 (14:57→20:24)
[2018-06-26] MEDS: CARVEDILOL 12.5 MG TABLET PER TUBE SCH ×2 (14:57→20:24)
[2018-06-26] MEDS: amLODIPine 10 MG TABLET PO SCH (14:57)
[2018-06-26] MEDS: ENOXAPARIN 30 MG/0.3 ML SYRINGE SUBCUT SCH (20:24)
[2018-06-27 05:27] LABS: Basophils # 0.1 10*3/uL (0.0-0.2); Basophils % 0.9 % (0.0-0.8); Eosinophils # 0.7 10*3/uL (0.0-0.87); Eosinophils % 8.6 % (0.00-10.9); Hematocrit 33.8 VOL% (35.7-47.0); Hemoglobin 10.6 GM/DL (12.0-16.0); Immature Granulocytes % 0.5 %; Immature Granulocytes Absolute 0.04 #; Lymphocytes # 1.4 10*3/uL (1.4-4.0); Lymphocytes % 17.9 % (21.3-54.2); Mean Corpuscular HGB Conc 31.4 GM/DL (32-36); Mean Corpuscular Hemoglobin 31 PG (27-34); Mean Corpuscular Volume 97.7 FL (87-102); Mean Platelet Volume 10.6 FL (9.6-12.0); Monocytes # 1.1 10*3/uL (0.11-0.8); Monocytes % 13.9 % (1.7-12.7); Neutrophils # 4.5 10*3/uL (1.4-7.4); Neutrophils % 58.2 % (38.7-73.9); Platelet Count 242 T/CUMM (130-400); Red Blood Count 3.46 MC/CUMM (3.8-5.5); Red Cell Distribution Width 14.7 % (9.3-17.3); White Blood Count 7.7 T/CUMM (4-12)
[2018-06-27 05:48] LABS: Alanine Aminotransferase 20 U/L (13-56); Albumin 2.4 G/DL (3.4-5.0); Alkaline Phosphatase 85 U/L (45-117); Aspartate Amino Transferase 19 U/L (0-37); Bilirubin,Total < 0.39 MG/DL (0.2-1.0); Blood Urea Nitrogen 44 MG/DL (7-18); Calcium 8.3 MG/DL (8.5-10.1); Glucose 79 MG/DL (74-106); Osmolality,Calculated 290.3 MOS/KG (273-304); Sodium 141 MMOL/L (136-145); Total Protein 6.9 G/DL (6.4-8.3)
[2018-06-27] MEDS: ALBUTEROL 2.5 MG/3 ML NEB RESP TX SCH ×3 (07:59→22:45)
[2018-06-27] MEDS: hydrALAZINE 25 MG TABLET PER TUBE SCH ×3 (08:45→22:20)
[2018-06-27] MEDS: amLODIPine 10 MG TABLET PO SCH (08:45)
[2018-06-27] MEDS: CARVEDILOL 12.5 MG TABLET PER TUBE SCH ×2 (08:45→22:21)
[2018-06-27] MEDS: RANITIDINE 150 MG/10 ML 30 ML BOTTLE PER TUBE SCH (08:46)
[2018-06-27] MEDS: PANTOPRAZOLE 40 MG TABLET PO SCH (17:53)
[2018-06-27] MEDS: ENOXAPARIN 30 MG/0.3 ML SYRINGE SUBCUT SCH (22:21)
[2018-06-27] MEDS ORDERED: ZIPRASIDONE 20 MG/1 ML VIAL IM PRN (23:49)
[2018-06-28] MEDS: ALBUTEROL 2.5 MG/3 ML NEB RESP TX SCH ×2 (07:08→14:39)
[2018-06-28] MEDS ORDERED: RANITIDINE 150 MG/10 ML 30 ML BOTTLE PER TUBE SCH (09:00)
[2018-06-28] MEDS: CARVEDILOL 12.5 MG TABLET PER TUBE SCH ×2 (09:40→20:38)
[2018-06-28] MEDS: hydrALAZINE 25 MG TABLET PER TUBE SCH ×3 (09:40→20:38)
[2018-06-28] MEDS: amLODIPine 10 MG TABLET PO SCH (09:40)
[2018-06-28] MEDS ORDERED: LEVOFLOXACIN 500 MG TABLET PO ONE (13:39)
[2018-06-28] MEDS ORDERED: LIDOCAINE 2% TOP JELLY 20 ML VIAL INTRAURETH ONE (14:51)
[2018-06-28] MEDS: PANTOPRAZOLE 40 MG TABLET PO SCH (16:42)
[2018-06-28] MEDS: DIVALPROEX 250 MG TABLET PO SCH (20:38)
[2018-06-28] MEDS: ENOXAPARIN 30 MG/0.3 ML SYRINGE SUBCUT SCH (20:38)
[2018-06-29] MEDS: ALBUTEROL 2.5 MG/3 ML NEB RESP TX SCH ×4 (00:26→23:21)
[2018-06-29] MEDS: amLODIPine 10 MG TABLET PO SCH (09:17)
[2018-06-29] MEDS: hydrALAZINE 25 MG TABLET PER TUBE SCH ×3 (09:17→20:06)
[2018-06-29] MEDS: PANTOPRAZOLE 40 MG TABLET PO SCH (09:17)
[2018-06-29] MEDS: CARVEDILOL 12.5 MG TABLET PER TUBE SCH ×2 (09:17→20:07)
[2018-06-29 09:54] LABS: Calcium 8.8 MG/DL (8.5-10.1); Osmolality,Calculated 292.1 MOS/KG (273-304); Potassium 4.2 MMOL/L (3.5-5.1)
[2018-06-29] MEDS: ENOXAPARIN 30 MG/0.3 ML SYRINGE SUBCUT SCH (20:06)
[2018-06-29] MEDS: DIVALPROEX 250 MG TABLET PO SCH (20:07)
[2018-06-30] MEDS: ALBUTEROL 2.5 MG/3 ML NEB RESP TX SCH ×3 (08:12→23:50)
[2018-06-30] MEDS: amLODIPine 10 MG TABLET PO SCH (08:45)
[2018-06-30] MEDS: PANTOPRAZOLE 40 MG TABLET PO SCH (08:45)
[2018-06-30] MEDS: CARVEDILOL 12.5 MG TABLET PER TUBE SCH ×2 (08:45→21:29)
[2018-06-30] MEDS: hydrALAZINE 25 MG TABLET PER TUBE SCH ×3 (08:45→21:29)
[2018-06-30] MEDS: ENOXAPARIN 30 MG/0.3 ML SYRINGE SUBCUT SCH (21:29)
[2018-06-30] MEDS: DIVALPROEX 250 MG TABLET PO SCH (21:29)
[2018-07-01] MEDS: ALBUTEROL 2.5 MG/3 ML NEB RESP TX SCH ×3 (07:52→23:41)
[2018-07-01] MEDS: hydrALAZINE 25 MG TABLET PER TUBE SCH ×3 (08:48→21:36)
[2018-07-01] MEDS: amLODIPine 10 MG TABLET PO SCH (08:48)
[2018-07-01] MEDS: PANTOPRAZOLE 40 MG TABLET PO SCH (08:48)
[2018-07-01] MEDS: CARVEDILOL 12.5 MG TABLET PER TUBE SCH ×2 (08:48→21:36)
[2018-07-01 11:19] LABS: Basophils # 0.1 10*3/uL (0.0-0.2); Basophils % 1.1 % (0.0-0.8); Eosinophils # 0.6 10*3/uL (0.0-0.87); Eosinophils % 9.5 % (0.00-10.9); Hematocrit 33.7 VOL% (35.7-47.0); Hemoglobin 10.5 GM/DL (12.0-16.0); Immature Granulocytes % 0.3 %; Immature Granulocytes Absolute 0.02 #; Lymphocytes % 15.3 % (21.3-54.2); Mean Corpuscular HGB Conc 31.2 GM/DL (32-36); Mean Corpuscular Hemoglobin 31 PG (27-34); Mean Corpuscular Volume 98.3 FL (87-102); Monocytes # 0.8 10*3/uL (0.11-0.8); Monocytes % 13.1 % (1.7-12.7); Neutrophils # 3.8 10*3/uL (1.4-7.4); Neutrophils % 60.7 % (38.7-73.9); Platelet Count 306 T/CUMM (130-400); Red Blood Count 3.43 MC/CUMM (3.8-5.5); Red Cell Distribution Width 14.5 % (9.3-17.3); White Blood Count 6.2 T/CUMM (4-12)
[2018-07-01 11:44] LABS: Calcium 8.8 MG/DL (8.5-10.1); Osmolality,Calculated 295.1 MOS/KG (273-304); Potassium 3.9 MMOL/L (3.5-5.1)
[2018-07-01] MEDS: DIVALPROEX 250 MG TABLET PO SCH (21:36)
[2018-07-01] MEDS: ENOXAPARIN 30 MG/0.3 ML SYRINGE SUBCUT SCH (21:46)
[2018-07-02] MEDS: ALBUTEROL 2.5 MG/3 ML NEB RESP TX SCH ×2 (08:00→14:36)
[2018-07-02] MEDS: PANTOPRAZOLE 40 MG TABLET PO SCH (09:45)
[2018-07-02] MEDS: amLODIPine 10 MG TABLET PO SCH (09:45)
[2018-07-02] MEDS: CARVEDILOL 12.5 MG TABLET PER TUBE SCH (09:46)
[2018-07-02] MEDS: hydrALAZINE 25 MG TABLET PER TUBE SCH ×2 (09:48→14:12)
[2018-07-02 13:25] LABS: Apearance,Urine CLEAR (Clear); Bacteria,Urine Many /HPF (Few); Bilirubin,Urine Negative (Negative); Blood, Urine Negative (Negative); Glucose,Urine (UA) Negative (Negative); Hyaline Casts,Urine 1 /LPF (0-3); Ketones,Urine 5 mg/dL (Negative); Mucus,Urine Occasional /LPF (Occasional); Nitrite,Urine Negative (Negative); Protein,Urine 100 MG/DL; RBC,Urine 1 /HPF (0-4); Renal Epithelial Cells,Urine Occasional /HPF (<1); Squamous Epithelial Cell,Urine Occasional /HPF (0-10); Urine Color Yellow (Yellow); Urine Specific Gravity 1.011 (1.001-1.035); Urine Urobilinogen < 2.0 EU/DL (0.2-1.0); WBC,Urine 8 /HPF (0-6)
[2018-07-02 15:29] VITALS: BP 147/73
== END 2018-07-02 18:34 | disposition swing bed (61) | DRG 208 ==
LOC: N.CC 16:57 → SUATTDRO 16:57 → N.5E 06-22 15:33
PROVIDERS: ADMIT Internal Medicine; ATTEND Hospitalist

== ENCOUNTER 2020-07-12 18:16 | Inpatient (IN) ==
[2020-07-12] MEDS ORDERED: ONDANSETRON 4 MG/2 ML VIAL IV PRN (20:22)
[2020-07-12] MEDS ORDERED: ALBUTEROL 2.5 MG/3 ML NEB RESP TX PRN (20:22)
[2020-07-12] MEDS ORDERED: metOLazone 5 MG TABLET PO ONE (20:28)
[2020-07-12] MEDS ORDERED: FUROSEMIDE 40 MG/4 ML VIAL IV ONE (20:29)
[2020-07-12] MEDS: HEPARIN 5,000 UNIT/1 ML VIAL SUBCUT SCH (21:28)
[2020-07-12] MEDS: DIVALPROEX ER 250 MG TABLET PO SCH (21:30)
[2020-07-12] MEDS: carvediloL 12.5 MG TABLET PO SCH (21:30)
[2020-07-12] MEDS ORDERED: INFLUENZA VIRUS VACCINE 0.5 ML SYRINGE IM ONE (21:40)
[2020-07-13] MEDS ORDERED: FUROSEMIDE 40 MG/4 ML VIAL IV ONE (03:58)
[2020-07-13 05:35] LABS: Basophils % 0.4 % (0.0-0.8); Eosinophils # 0.1 10*3/uL (0.0-0.87); Hematocrit 19.3 VOL% (35.7-47.0); Immature Granulocytes % 0.7 %; Immature Granulocytes Absolute 0.05 #; Lymphocytes # 0.8 10*3/uL (1.4-4.0); Lymphocytes % 11.3 % (21.3-54.2); Mean Corpuscular HGB Conc 32.6 GM/DL (32-36); Mean Platelet Volume 10.4 FL (9.6-12.0); Neutrophils % 76.6 % (38.7-73.9); Platelet Count 197 T/CUMM (130-400); Red Blood Count 1.95 MC/CUMM (3.8-5.5); Red Cell Distribution Width 15.8 % (9.3-17.3); White Blood Count 7.3 T/CUMM (4-12)
[2020-07-13 05:58] LABS: Hemoglobin 6.3 GM/DL (12.0-16.0)
[2020-07-13] MEDS ORDERED: SODIUM CHLORIDE 0.9% 1,000 ML IV PRN (06:03)
[2020-07-13 06:06] LABS: Calcium 9.1 MG/DL (8.5-10.1); Osmolality,Calculated 282.5 MOS/KG (273-304)
[2020-07-13 06:17] LABS: Folate 6.3 NG/ML (5.4-24.0); Vitamin B12 913 PG/ML (211-911)
[2020-07-13 07:46] LABS: Sedimentation Rate-Westergren 105 MM/HR (0-30)
[2020-07-13] MEDS ORDERED: amLODIPine 5 MG TABLET PO SCH (09:00)
[2020-07-13 10:02] LABS: Hemoglobin A1 (Alkaline) 96.7 % (96.5-98.5); Hemoglobin A2 (Alkaline) 3.3 % (1.5-3.5)
[2020-07-13] MEDS ORDERED: HEPARIN 10,000 UNIT/10 ML VIAL IV SCH (10:30)
[2020-07-13] MEDS ORDERED: HEPARIN 10,000 UNIT/10 ML VIAL ONE (11:20)
[2020-07-13] MEDS: HEPARIN 5,000 UNIT/1 ML VIAL SUBCUT SCH ×2 (12:15→21:30)
[2020-07-13] MEDS: carvediloL 12.5 MG TABLET PO SCH (13:11)
[2020-07-13] MEDS: hydrALAZINE 25 MG TABLET PO SCH (13:12)
[2020-07-13] MEDS: PANTOPRAZOLE 40 MG TABLET PO SCH (13:12)
[2020-07-13 14:17] LABS: Hematocrit 29.7 VOL% (35.7-47.0)
[2020-07-13] MEDS: carvediloL 25 MG TABLET PO SCH (17:07)
[2020-07-13] MEDS: PIPERACILLIN/TAZOBACTAM 3,375 MG in SODIUM CHLORIDE 0.9% 100 ML IV SCH (17:07)
[2020-07-13] MEDS: MENTHOL/ZINC OXIDE OINT 71 GM JAR TOP SCH ×2 (18:36→21:29)
[2020-07-13] MEDS: DIVALPROEX ER 250 MG TABLET PO SCH (21:30)
[2020-07-13] MEDS: AZITHROMYCIN INJ 500 MG in SODIUM CHLORIDE 0.9% 250 ML IV SCH (21:30)
[2020-07-14] MEDS: PIPERACILLIN/TAZOBACTAM 3,375 MG in SODIUM CHLORIDE 0.9% 100 ML IV SCH ×2 (04:01→15:28)
[2020-07-14 06:18] LABS: Basophils % 0.4 % (0.0-0.8); Eosinophils # 0.2 10*3/uL (0.0-0.87); Hematocrit 28.5 VOL% (35.7-47.0); Hemoglobin 9.5 GM/DL (12.0-16.0); Immature Granulocytes % 0.5 %; Immature Granulocytes Absolute 0.04 #; Lymphocytes # 0.8 10*3/uL (1.4-4.0); Lymphocytes % 9.8 % (21.3-54.2); Mean Corpuscular HGB Conc 33.3 GM/DL (32-36); Mean Corpuscular Volume 93.8 FL (87-102); Mean Platelet Volume 10.5 FL (9.6-12.0); Monocytes % 10.9 % (1.7-12.7); Neutrophils % 76.4 % (38.7-73.9); Platelet Count 175 T/CUMM (130-400); Red Blood Count 3.04 MC/CUMM (3.8-5.5); Red Cell Distribution Width 16.6 % (9.3-17.3)
[2020-07-14 06:31] LABS: Calcium 8.5 MG/DL (8.5-10.1); Osmolality,Calculated 274.8 MOS/KG (273-304)
[2020-07-14 06:32] LABS: Hypochromasia 1+; Microcytosis 1+; Platelet Estimate Adequate
[2020-07-14] MEDS ORDERED: POTASSIUM CHLORIDE 20 MEQ TABLET PO ONE (06:33)
[2020-07-14 06:37] LABS: Ferritin 970.7 ng/ml (8-252)
[2020-07-14 08:35] LABS: ABG Base Excess 6.4 MMOL/L (-2.5-2.5); ABG HCO3 30.2 MMOL/L (20-26); ABG Oxygen Saturation 98.7 % (95-100); ABG PCO2 41.2 MM HG (35-48); ABG PH 7.477 (7.35-7.45); Allen Test Positive; Pt O2 Delivery Device Other
[2020-07-14] MEDS: amLODIPine 10 MG TABLET PO SCH (10:15)
[2020-07-14] MEDS: PANTOPRAZOLE 40 MG TABLET PO SCH (10:15)
[2020-07-14] MEDS: hydrALAZINE 25 MG TABLET PO SCH (10:15)
[2020-07-14] MEDS: carvediloL 25 MG TABLET PO SCH ×2 (10:15→18:05)
[2020-07-14] MEDS: methylPREDNISolone SOD SUC 40 MG/1 ML VIAL IV SCH ×2 (10:16→18:06)
[2020-07-14] MEDS: MENTHOL/ZINC OXIDE OINT 71 GM JAR TOP SCH ×2 (10:16→21:32)
[2020-07-14] MEDS: HEPARIN 5,000 UNIT/1 ML VIAL SUBCUT SCH ×2 (10:16→21:32)
[2020-07-14] MEDS: AZITHROMYCIN INJ 500 MG in SODIUM CHLORIDE 0.9% 250 ML IV SCH (21:31)
[2020-07-14] MEDS: DIVALPROEX ER 250 MG TABLET PO SCH (21:32)
[2020-07-15] MEDS: methylPREDNISolone SOD SUC 40 MG/1 ML VIAL IV SCH ×3 (01:28→18:13)
[2020-07-15] MEDS: PIPERACILLIN/TAZOBACTAM 3,375 MG in SODIUM CHLORIDE 0.9% 100 ML IV SCH ×2 (03:33→18:13)
[2020-07-15 06:07] LABS: Basophils % 0.2 % (0.0-0.8); Hematocrit 28.4 VOL% (35.7-47.0); Hemoglobin 9.5 GM/DL (12.0-16.0); Immature Granulocytes % 2.1 %; Immature Granulocytes Absolute 0.11 #; Lymphocytes # 0.3 10*3/uL (1.4-4.0); Lymphocytes % 5.7 % (21.3-54.2); Mean Corpuscular HGB Conc 33.5 GM/DL (32-36); Mean Platelet Volume 10.9 FL (9.6-12.0); NRBC # 0.02 10*3/uL; Platelet Count 180 T/CUMM (130-400); Red Blood Count 3.02 MC/CUMM (3.8-5.5); Red Cell Distribution Width 16.3 % (9.3-17.3); White Blood Count 5.3 T/CUMM (4-12)
[2020-07-15 06:29] LABS: Calcium 8.1 MG/DL (8.5-10.1); Osmolality,Calculated 284.8 MOS/KG (273-304)
[2020-07-15 06:31] LABS: % Iron Saturation 19.4 % (18-50)
[2020-07-15 06:40] LABS: Ferritin 827.3 ng/ml (8-252)
[2020-07-15 06:54] LABS: Folate 5.1 NG/ML (5.4-24.0)
[2020-07-15] MEDS ORDERED: IRON SUCROSE 100 MG/5 ML VIAL IV SCH (09:30)
[2020-07-15] MEDS: amLODIPine 10 MG TABLET PO SCH (09:31)
[2020-07-15] MEDS: PANTOPRAZOLE 40 MG TABLET PO SCH (09:31)
[2020-07-15] MEDS: carvediloL 25 MG TABLET PO SCH ×2 (09:31→18:14)
[2020-07-15] MEDS: HEPARIN 5,000 UNIT/1 ML VIAL SUBCUT SCH ×2 (09:31→21:30)
[2020-07-15] MEDS: MENTHOL/ZINC OXIDE OINT 71 GM JAR TOP SCH ×2 (09:31→21:41)
[2020-07-15] MEDS: hydrALAZINE 25 MG TABLET PO SCH (09:31)
[2020-07-15] MEDS: IRON SUCROSE 100 MG in SODIUM CHLORIDE 0.9% 100 ML IV SCH (16:05)
[2020-07-15] MEDS: DIVALPROEX ER 250 MG TABLET PO SCH (21:29)
[2020-07-15] MEDS: AZITHROMYCIN INJ 500 MG in SODIUM CHLORIDE 0.9% 250 ML IV SCH (21:30)
[2020-07-16] MEDS: methylPREDNISolone SOD SUC 40 MG/1 ML VIAL IV SCH ×3 (01:41→16:45)
[2020-07-16] MEDS: PIPERACILLIN/TAZOBACTAM 3,375 MG in SODIUM CHLORIDE 0.9% 100 ML IV SCH ×2 (03:32→16:44)
[2020-07-16 04:23] LABS: ABG Base Excess 3.3 MMOL/L (-2.5-2.5); ABG HCO3 27.3 MMOL/L (20-26); ABG Oxygen Saturation 94.3 % (95-100); ABG PCO2 41.1 MM HG (35-48); ABG PH 7.438 (7.35-7.45); ABG PO2 67.6 MM HG (80-95); ABG TCO2 25.4 MMOL/L (23-27); Allen Test Positive; Pt O2 Delivery Device Room Air
[2020-07-16 06:10] LABS: Basophils % 0.1 % (0.0-0.8); Hematocrit 29.7 VOL% (35.7-47.0); Hemoglobin 9.9 GM/DL (12.0-16.0); Immature Granulocytes % 1.6 %; Immature Granulocytes Absolute 0.13 #; Lymphocytes # 0.3 10*3/uL (1.4-4.0); Lymphocytes % 4.1 % (21.3-54.2); Mean Corpuscular HGB Conc 33.3 GM/DL (32-36); Mean Corpuscular Volume 95.2 FL (87-102); Mean Platelet Volume 10.6 FL (9.6-12.0); NRBC # 0.02 10*3/uL; Neutrophils % 89.2 % (38.7-73.9); Platelet Count 192 T/CUMM (130-400); Red Blood Count 3.12 MC/CUMM (3.8-5.5); Red Cell Distribution Width 16.1 % (9.3-17.3); White Blood Count 8.4 T/CUMM (4-12)
[2020-07-16 06:22] LABS: Osmolality,Calculated 280.5 MOS/KG (273-304); Osmolality,Calculated 281.5 MOS/KG (273-304)
[2020-07-16 06:31] LABS: Hypochromasia 1+; Lymphocytes 3 % (20-55); Microcytosis 1+; Platelet Estimate Adequate; Segmented Neutrophils 95 % (50-85); Total Cells Counted 100
[2020-07-16] MEDS ORDERED: hydrALAZINE 25 MG TABLET PO SCH (09:00)
[2020-07-16] MEDS: amLODIPine 10 MG TABLET PO SCH (10:07)
[2020-07-16] MEDS: hydrALAZINE 25 MG TABLET PO SCH ×3 (10:07→21:50)
[2020-07-16] MEDS: carvediloL 25 MG TABLET PO SCH ×2 (10:07→16:44)
[2020-07-16] MEDS: PANTOPRAZOLE 40 MG TABLET PO SCH (10:07)
[2020-07-16] MEDS: MENTHOL/ZINC OXIDE OINT 71 GM JAR TOP SCH ×2 (10:08→21:51)
[2020-07-16] MEDS: HEPARIN 5,000 UNIT/1 ML VIAL SUBCUT SCH (18:02)
[2020-07-16] MEDS: AZITHROMYCIN INJ 500 MG in SODIUM CHLORIDE 0.9% 250 ML IV SCH (21:49)
[2020-07-16] MEDS: DIVALPROEX ER 500 MG TABLET PO SCH (21:51)
[2020-07-17] MEDS: methylPREDNISolone SOD SUC 40 MG/1 ML VIAL IV SCH ×3 (02:03→16:30)
[2020-07-17] MEDS: PIPERACILLIN/TAZOBACTAM 3,375 MG in SODIUM CHLORIDE 0.9% 100 ML IV SCH ×2 (03:59→16:12)
[2020-07-17 05:50] LABS: Basophils % 0.2 % (0.0-0.8); Hematocrit 30.4 VOL% (35.7-47.0); Hemoglobin 10.3 GM/DL (12.0-16.0); Immature Granulocytes % 2.2 %; Lymphocytes # 0.4 10*3/uL (1.4-4.0); Lymphocytes % 4.4 % (21.3-54.2); Mean Corpuscular HGB Conc 33.9 GM/DL (32-36); Mean Corpuscular Volume 96.2 FL (87-102); Mean Platelet Volume 10.4 FL (9.6-12.0); Monocytes % 6.1 % (1.7-12.7); NRBC # 0.05 10*3/uL; Neutrophils % 87.1 % (38.7-73.9); Platelet Count 211 T/CUMM (130-400); Red Blood Count 3.16 MC/CUMM (3.8-5.5); White Blood Count 9.3 T/CUMM (4-12)
[2020-07-17 06:17] LABS: Ferritin 713.3 ng/ml (8-252)
[2020-07-17 06:18] LABS: Hypochromasia 1+; Lymphocytes 3 % (20-55); Ovalocytes Slight; Platelet Estimate Adequate; Segmented Neutrophils 90 % (50-85); Total Cells Counted 100
[2020-07-17 06:19] LABS: Microcytosis 1+
[2020-07-17 06:20] LABS: Calcium 8.1 MG/DL (8.5-10.1); Osmolality,Calculated 282.8 MOS/KG (273-304)
[2020-07-17] MEDS: carvediloL 25 MG TABLET PO SCH ×3 (06:43→16:11)
[2020-07-17] MEDS: amLODIPine 10 MG TABLET PO SCH ×2 (06:43→10:54)
[2020-07-17] MEDS: hydrALAZINE 25 MG TABLET PO SCH ×4 (06:43→21:45)
[2020-07-17] MEDS: SODIUM CHLORIDE 0.9% 500 ML IV SCH (07:30)
[2020-07-17] MEDS ORDERED: LIDOCAINE 2% 5 ML VIAL ONE (09:00)
[2020-07-17] MEDS ORDERED: propofoL 200 MG/20 ML VIAL IV ONE (09:00)
[2020-07-17] MEDS ORDERED: ETOMIDATE 20 MG/10 ML VIAL IV ONE (09:00)
[2020-07-17] MEDS: PANTOPRAZOLE 40 MG TABLET PO SCH (10:53)
[2020-07-17] MEDS: MENTHOL/ZINC OXIDE OINT 71 GM JAR TOP SCH ×2 (10:55→21:53)
[2020-07-17] MEDS: IRON SUCROSE 100 MG in SODIUM CHLORIDE 0.9% 100 ML IV SCH (11:02)
[2020-07-17 14:59] LABS: Lymphocytes,Pleural Fluid 56 %; Monocytes,Pleural Fluid 4 %; Neutrophils,Pleural Fluid 40 %
[2020-07-17 15:00] LABS: RBC,Pleural Fluid 29 T/CUMM
[2020-07-17 15:04] LABS: Glucose,Pleural Fluid 109 MG/DL; LDH,Body Fluid 86 U/L; Triglycerides,Body Fluid < 8 MG/DL
[2020-07-17 15:05] LABS: Amylase,Body Fluid 28 U/L; Total Protein,Body Fluid 3.2 G/DL
[2020-07-17] MEDS: DIVALPROEX ER 500 MG TABLET PO SCH (21:46)
[2020-07-17] MEDS: AZITHROMYCIN INJ 500 MG in SODIUM CHLORIDE 0.9% 250 ML IV SCH (21:46)
[2020-07-17] MEDS: BISACODYL 5 MG TABLET PO SCH (21:48)
[2020-07-18] MEDS: methylPREDNISolone SOD SUC 40 MG/1 ML VIAL IV SCH ×3 (02:05→16:31)
[2020-07-18] MEDS: PIPERACILLIN/TAZOBACTAM 3,375 MG in SODIUM CHLORIDE 0.9% 100 ML IV SCH ×2 (04:00→16:18)
[2020-07-18 05:56] LABS: Basophils % 0.2 % (0.0-0.8); Hematocrit 30.8 VOL% (35.7-47.0); Hemoglobin 10.1 GM/DL (12.0-16.0); Immature Granulocytes % 4.2 %; Immature Granulocytes Absolute 0.35 #; Lymphocytes # 0.4 10*3/uL (1.4-4.0); Lymphocytes % 4.8 % (21.3-54.2); Mean Corpuscular HGB Conc 32.8 GM/DL (32-36); Mean Corpuscular Volume 95.7 FL (87-102); Mean Platelet Volume 10.4 FL (9.6-12.0); Monocytes % 6.8 % (1.7-12.7); Platelet Count 193 T/CUMM (130-400); Red Blood Count 3.22 MC/CUMM (3.8-5.5); Red Cell Distribution Width 15.9 % (9.3-17.3); White Blood Count 8.3 T/CUMM (4-12)
[2020-07-18 06:15] LABS: Calcium 7.8 MG/DL (8.5-10.1); Osmolality,Calculated 283.1 MOS/KG (273-304)
[2020-07-18 06:19] LABS: Ferritin 636.4 ng/ml (8-252)
[2020-07-18 06:39] LABS: Hypochromasia 1+; Lymphocytes 7 % (20-55); Microcytosis 1+; Segmented Neutrophils 87 % (50-85); Total Cells Counted 100
[2020-07-18 06:40] LABS: Anisocytosis 1+; Platelet Estimate Adequate; Polychromasia Slight
[2020-07-18] MEDS: BISACODYL 5 MG TABLET PO SCH (08:40)
[2020-07-18] MEDS: hydrALAZINE 25 MG TABLET PO SCH ×3 (08:41→21:52)
[2020-07-18] MEDS: amLODIPine 10 MG TABLET PO SCH (08:41)
[2020-07-18] MEDS: PANTOPRAZOLE 40 MG TABLET PO SCH (08:41)
[2020-07-18] MEDS: carvediloL 25 MG TABLET PO SCH ×2 (08:41→16:18)
[2020-07-18] MEDS: MENTHOL/ZINC OXIDE OINT 71 GM JAR TOP SCH ×2 (08:45→21:57)
[2020-07-18] MEDS: SODIUM CHLORIDE 0.9% 500 ML IV SCH (08:46)
[2020-07-18] MEDS: AZITHROMYCIN INJ 500 MG in SODIUM CHLORIDE 0.9% 250 ML IV SCH (21:51)
[2020-07-18] MEDS: DIVALPROEX ER 500 MG TABLET PO SCH (21:52)
[2020-07-19] MEDS: methylPREDNISolone SOD SUC 40 MG/1 ML VIAL IV SCH ×3 (01:29→18:29)
[2020-07-19] MEDS: PIPERACILLIN/TAZOBACTAM 3,375 MG in SODIUM CHLORIDE 0.9% 100 ML IV SCH ×2 (04:04→15:55)
[2020-07-19 05:45] LABS: Basophils # 0.1 10*3/uL (0.0-0.2); Basophils % 0.6 % (0.0-0.8); Hematocrit 33.4 VOL% (35.7-47.0); Hemoglobin 10.9 GM/DL (12.0-16.0); Immature Granulocytes % 7.8 %; Immature Granulocytes Absolute 0.79 #; Lymphocytes # 0.5 10*3/uL (1.4-4.0); Lymphocytes % 4.6 % (21.3-54.2); Mean Corpuscular HGB Conc 32.6 GM/DL (32-36); Mean Corpuscular Volume 95.7 FL (87-102); Mean Platelet Volume 10.2 FL (9.6-12.0); Monocytes % 6.3 % (1.7-12.7); NRBC # 0.18 10*3/uL; Neutrophils % 80.7 % (38.7-73.9); Platelet Count 212 T/CUMM (130-400); Red Blood Count 3.49 MC/CUMM (3.8-5.5); Red Cell Distribution Width 16.3 % (9.3-17.3); White Blood Count 10.2 T/CUMM (4-12)
[2020-07-19 06:09] LABS: Calcium 8.2 MG/DL (8.5-10.1); Osmolality,Calculated 284.8 MOS/KG (273-304)
[2020-07-19 06:13] LABS: Ferritin 776.2 ng/ml (8-252)
[2020-07-19 06:15] LABS: Lymphocytes 3 % (20-55); Metamyelocytes 1 %; Myelocytes 1 %; Segmented Neutrophils 89 % (50-85); Total Cells Counted 100
[2020-07-19 06:16] LABS: Hypochromasia 1+; Microcytosis 1+; Polychromasia Slight
[2020-07-19 06:17] LABS: Anisocytosis 1+; Ovalocytes Slight; Platelet Estimate Normal
[2020-07-19] MEDS: BISACODYL 5 MG TABLET PO SCH ×4 (06:40→23:40)
[2020-07-19] MEDS: hydrALAZINE 25 MG TABLET PO SCH ×3 (09:53→20:38)
[2020-07-19] MEDS: carvediloL 25 MG TABLET PO SCH ×2 (09:53→18:29)
[2020-07-19] MEDS: amLODIPine 10 MG TABLET PO SCH (09:53)
[2020-07-19] MEDS: PANTOPRAZOLE 40 MG TABLET PO SCH (09:54)
[2020-07-19] MEDS: MENTHOL/ZINC OXIDE OINT 71 GM JAR TOP SCH ×2 (09:55→20:39)
[2020-07-19] MEDS: SODIUM CHLORIDE 0.9% 500 ML IV SCH (13:09)
[2020-07-19] MEDS ORDERED: POLYETHYLENE GLYCOL 3350/ELECTROLYTES 4,000 ML BOTTLE PO ONE (14:00)
[2020-07-19] MEDS: DIVALPROEX ER 500 MG TABLET PO SCH (20:38)
[2020-07-19] MEDS: AZITHROMYCIN INJ 500 MG in SODIUM CHLORIDE 0.9% 250 ML IV SCH (20:42)
[2020-07-19] MEDS ORDERED: MAGNESIUM CITRATE 300 ML BOTTLE PO ONE (21:00)
[2020-07-20] MEDS: methylPREDNISolone SOD SUC 40 MG/1 ML VIAL IV SCH ×3 (01:42→12:46)
[2020-07-20] MEDS: PIPERACILLIN/TAZOBACTAM 3,375 MG in SODIUM CHLORIDE 0.9% 100 ML IV SCH ×2 (03:09→14:49)
[2020-07-20 08:27] LABS: Calcium 8.2 MG/DL (8.5-10.1); Osmolality,Calculated 285.8 MOS/KG (273-304)
[2020-07-20] MEDS: SODIUM CHLORIDE 0.9% 500 ML IV SCH (09:16)
[2020-07-20] MEDS: carvediloL 25 MG TABLET PO SCH ×2 (09:16→18:19)
[2020-07-20] MEDS: PANTOPRAZOLE 40 MG TABLET PO SCH (09:17)
[2020-07-20] MEDS: hydrALAZINE 25 MG TABLET PO SCH ×3 (09:17→21:49)
[2020-07-20] MEDS: MENTHOL/ZINC OXIDE OINT 71 GM JAR TOP SCH ×2 (09:17→21:50)
[2020-07-20] MEDS: BISACODYL 5 MG TABLET PO SCH (09:17)
[2020-07-20] MEDS: amLODIPine 10 MG TABLET PO SCH (09:17)
[2020-07-20] MEDS ORDERED: POTASSIUM CHLORIDE 20 MEQ TABLET PO PRN (09:54)
[2020-07-20] MEDS ORDERED: POTASSIUM CHLORIDE RIDER 10 MEQ in PREMIX 1 EACH IV PRN (09:54)
[2020-07-20] MEDS ORDERED: POTASSIUM CHLORIDE 20 MEQ TABLET PO ONE ×4 (10:00→22:00)
[2020-07-20] MEDS ORDERED: NICOTINE 21 MG/24 HR PATCH TRANSDERM PRN (10:15)
[2020-07-20 10:43] LABS: Hepatitis B Core IgM Quant 0.07 Index; Hepatitis B Surface Ag Quant < 0.10 Index; Hepatitis B Surface Ag Result Negative (Negative); Hepatitis C Virus Ab Quant 0.02 Index; Hepatitis C Virus Ab Result Negative (Negative)
[2020-07-20] MEDS: IRON SUCROSE 100 MG in SODIUM CHLORIDE 0.9% 100 ML IV SCH (12:46)
[2020-07-20] MEDS: DIVALPROEX ER 500 MG TABLET PO SCH (21:49)
[2020-07-20] MEDS: AZITHROMYCIN INJ 500 MG in SODIUM CHLORIDE 0.9% 250 ML IV SCH (21:50)
[2020-07-21] MEDS: methylPREDNISolone SOD SUC 40 MG/1 ML VIAL IV SCH ×2 (00:03→13:15)
[2020-07-21 05:17] LABS: Basophils % 0.1 % (0.0-0.8); Eosinophils % 0.1 % (0.00-10.9); Hemoglobin 11.6 GM/DL (12.0-16.0); Immature Granulocytes % 10.8 %; Lymphocytes # 0.4 10*3/uL (1.4-4.0); Lymphocytes % 4.6 % (21.3-54.2); Mean Corpuscular HGB Conc 33.1 GM/DL (32-36); Mean Corpuscular Volume 95.4 FL (87-102); Mean Platelet Volume 10.2 FL (9.6-12.0); Monocytes % 7.7 % (1.7-12.7); NRBC # 0.09 10*3/uL; Neutrophils % 76.7 % (38.7-73.9); Platelet Count 212 T/CUMM (130-400); Red Blood Count 3.67 MC/CUMM (3.8-5.5); Red Cell Distribution Width 17.4 % (9.3-17.3); White Blood Count 9.2 T/CUMM (4-12)
[2020-07-21 05:39] LABS: Calcium 7.8 MG/DL (8.5-10.1); Lymphocytes 10 % (20-55); Osmolality,Calculated 275.1 MOS/KG (273-304); Platelet Estimate Normal; Segmented Neutrophils 85 % (50-85); Total Cells Counted 100
[2020-07-21 05:40] LABS: Calcium 7.8 MG/DL (8.5-10.1)
[2020-07-21] MEDS ORDERED: SODIUM CHLORIDE 0.9% 1,000 ML IV SCH (07:30)
[2020-07-21] MEDS ORDERED: propofoL 200 MG/20 ML VIAL IV ONE (09:00)
[2020-07-21] MEDS ORDERED: LIDOCAINE 2% 5 ML VIAL ONE (09:00)
[2020-07-21] MEDS ORDERED: ETOMIDATE 20 MG/10 ML VIAL IV ONE (09:00)
[2020-07-21] MEDS: hydrALAZINE 25 MG TABLET PO SCH ×2 (09:34→16:02)
[2020-07-21] MEDS: PANTOPRAZOLE 40 MG TABLET PO SCH (09:34)
[2020-07-21] MEDS: amLODIPine 10 MG TABLET PO SCH (09:35)
[2020-07-21] MEDS: carvediloL 25 MG TABLET PO SCH (09:35)
[2020-07-21] MEDS: BISACODYL 5 MG TABLET PO SCH (09:35)
[2020-07-21] MEDS: MENTHOL/ZINC OXIDE OINT 71 GM JAR TOP SCH (09:35)
[2020-07-21 18:32] VITALS: BP 136/73
== END 2020-07-21 17:39 | disposition home health service (06) | DRG 291 ==
LOC: N.3E → SUATTDRO 18:19
PROVIDERS: ADMIT Internal Medicine; ATTEND Internal Medicine

== ENCOUNTER 2021-07-30 12:39 | Inpatient (IN) ==
[2021-07-30 13:38] LABS: Basophils # 0.1 10*3/uL (0.0-0.2); Basophils % 0.7 % (0.0-0.8); Eosinophils # 0.7 10*3/uL (0.0-0.87); Eosinophils % 6.7 % (0.00-10.9); Hematocrit 23.8 VOL% (35.7-47.0); Hemoglobin 7.4 GM/DL (12.0-16.0); Immature Granulocytes % 2.3 %; Immature Granulocytes Absolute 0.23 #; Lymphocytes # 1.4 10*3/uL (1.4-4.0); Lymphocytes % 13.9 % (21.3-54.2); Mean Corpuscular HGB Conc 31.1 GM/DL (32-36); Mean Corpuscular Volume 104.4 FL (87-102); Mean Platelet Volume 10.3 FL (9.6-12.0); Monocytes % 17.6 % (1.7-12.7); NRBC # 0.05 10*3/uL; Neutrophils % 58.8 % (38.7-73.9); Platelet Count 279 T/CUMM (130-400); Red Blood Count 2.28 MC/CUMM (3.8-5.5); Red Cell Distribution Width 18.5 % (9.3-17.3); White Blood Count 9.9 T/CUMM (4-12)
[2021-07-30 13:55] LABS: Alanine Aminotransferase 58 U/L (13-56); Albumin 2.6 G/DL (3.4-5.0); Alkaline Phosphatase 110 U/L (45-117); Aspartate Amino Transferase 55 U/L (0-37); Bilirubin,Total < 0.39 MG/DL (0.20-1.00); Blood Urea Nitrogen 14 MG/DL (7-18); Calcium 9.2 MG/DL (8.5-10.1); Carbon Dioxide 33 MMOL/L (21-32); Estimated Glom Filtration Rate 17 ML/MIN; Glucose 109 MG/DL (74-106); Osmolality,Calculated 278.5 MOS/KG (273-304); Potassium 3.5 MMOL/L (3.5-5.1); Sodium 139 MMOL/L (136-145); Total Protein 7.3 G/DL (6.4-8.2)
[2021-07-30 14:20] LABS: INR 1.2; PT Patient Result 13.6 SECS (10.5-12.0)
[2021-07-30 14:48] LABS: Band Neutrophils 2 % (0-10); Eosinophils 7 % (0-10); Lymphocytes 18 % (20-55); Myelocytes 1 %; Segmented Neutrophils 65 % (50-85); Total Cells Counted 100
[2021-07-30 14:53] LABS: Hypochromasia 2+
[2021-07-30 14:55] LABS: Platelet Estimate Adequate; Polychromasia Few
[2021-07-30] MEDS ORDERED: ONDANSETRON 4 MG/2 ML VIAL IV PRN (15:47)
[2021-07-30] MEDS ORDERED: GLUCAGON 1 MG VIAL IM PRN (15:47)
[2021-07-30] MEDS ORDERED: ALBUTEROL 2.5 MG/3 ML NEB RESP TX PRN (15:47)
[2021-07-30] MEDS ORDERED: DEXTROSE 50% 25 GM/50 ML VIAL IV PRN (15:47)
[2021-07-30] MEDS ORDERED: SODIUM CHLORIDE 0.9% 1,000 ML IV PRN (15:50)
[2021-07-30 22:07] LABS: Hematocrit 28.8 VOL% (35.7-47.0)
[2021-07-30 22:09] LABS: Hemoglobin 9.2 GM/DL (12.0-16.0)
[2021-07-31 06:08] LABS: Basophils # 0.1 10*3/uL (0.0-0.2); Basophils % 0.8 % (0.0-0.8); Eosinophils # 0.8 10*3/uL (0.0-0.87); Eosinophils % 8.1 % (0.00-10.9); Hematocrit 25.3 VOL% (35.7-47.0); Hemoglobin 7.9 GM/DL (12.0-16.0); Immature Granulocytes Absolute 0.19 #; Lymphocytes # 1.7 10*3/uL (1.4-4.0); Lymphocytes % 17.5 % (21.3-54.2); Mean Corpuscular HGB Conc 31.2 GM/DL (32-36); Mean Corpuscular Volume 99.6 FL (87-102); Mean Platelet Volume 10.4 FL (9.6-12.0); Monocytes % 16.6 % (1.7-12.7); Platelet Count 248 T/CUMM (130-400); Red Blood Count 2.54 MC/CUMM (3.8-5.5); Red Cell Distribution Width 19.3 % (9.3-17.3); White Blood Count 9.5 T/CUMM (4-12)
[2021-07-31 06:11] LABS: Hematocrit 25.5 VOL% (35.7-47.0); Hemoglobin 8.1 GM/DL (12.0-16.0)
[2021-07-31 06:34] LABS: Eosinophils 3 % (0-10); Hypochromasia 1+; Lymphocytes 11 % (20-55); Microcytosis 1+; Platelet Estimate Adequate; Segmented Neutrophils 75 % (50-85); Total Cells Counted 100
[2021-07-31 06:53] LABS: Albumin 2.3 G/DL (3.4-5.0); Bilirubin,Total 1.4 MG/DL (0.20-1.00); Calcium 8.8 MG/DL (8.5-10.1); Osmolality,Calculated 278.7 MOS/KG (273-304); Potassium 3.7 MMOL/L (3.5-5.1); Risk Ratio 2.32; Thyroid Stimulating Hormone 1.37 uIU/ml (0.358-3.74); Total Protein 6.5 G/DL (6.4-8.2); VLDL Cholesterol 9.8 MG/DL
[2021-07-31] MEDS ORDERED: HEPARIN 10,000 UNIT/10 ML VIAL IV ONE (11:30)
[2021-07-31] MEDS: PANTOPRAZOLE 40 MG TABLET PO SCH (13:11)
[2021-07-31] MEDS: hydrALAZINE 20 MG/1 ML VIAL IV PRN (13:11)
[2021-07-31] MEDS: CIPROFLOXACIN INJ 400 MG/200 ML PREMIX IV SCH ×2 (13:11→21:35)
[2021-07-31] MEDS: metroNIDAZOLE INJ 500 MG/100 ML PREMIX IV SCH ×2 (15:57→17:32)
[2021-08-01] MEDS: hydrALAZINE 20 MG/1 ML VIAL IV PRN ×2 (00:45→09:56)
[2021-08-01] MEDS: metroNIDAZOLE INJ 500 MG/100 ML PREMIX IV SCH ×3 (00:45→17:55)
[2021-08-01 06:39] LABS: Basophils # 0.1 10*3/uL (0.0-0.2); Basophils % 0.8 % (0.0-0.8); Eosinophils # 0.8 10*3/uL (0.0-0.87); Eosinophils % 7.6 % (0.00-10.9); Hematocrit 28.9 VOL% (35.7-47.0); Hemoglobin 9.1 GM/DL (12.0-16.0); Lymphocytes # 1.5 10*3/uL (1.4-4.0); Lymphocytes % 15.4 % (21.3-54.2); Mean Corpuscular HGB Conc 31.5 GM/DL (32-36); Mean Corpuscular Volume 96.3 FL (87-102); Mean Platelet Volume 9.9 FL (9.6-12.0); Monocytes % 15.2 % (1.7-12.7); NRBC # 0.03 10*3/uL; Platelet Count 230 T/CUMM (130-400); Red Cell Distribution Width 19.7 % (9.3-17.3)
[2021-08-01 07:21] LABS: Calcium 8.9 MG/DL (8.5-10.1); Osmolality,Calculated 275.7 MOS/KG (273-304); Potassium 3.6 MMOL/L (3.5-5.1)
[2021-08-01] MEDS: PANTOPRAZOLE 40 MG TABLET PO SCH (09:15)
[2021-08-01] MEDS: CIPROFLOXACIN INJ 400 MG/200 ML PREMIX IV SCH ×2 (11:06→21:00)
[2021-08-02] MEDS: metroNIDAZOLE INJ 500 MG/100 ML PREMIX IV SCH (00:58)
[2021-08-02 07:23] LABS: Calcium 8.8 MG/DL (8.5-10.1); Potassium 4.3 MMOL/L (3.5-5.1)
[2021-08-02 08:07] LABS: Basophils % 0.5 % (0.0-0.8); Eosinophils # 0.5 10*3/uL (0.0-0.87); Eosinophils % 6.7 % (0.00-10.9); Hematocrit 19.8 VOL% (35.7-47.0); Immature Granulocytes % 2.1 %; Immature Granulocytes Absolute 0.17 #; Lymphocytes # 1.5 10*3/uL (1.4-4.0); Lymphocytes % 18.7 % (21.3-54.2); Mean Corpuscular HGB Conc 31.3 GM/DL (32-36); Mean Platelet Volume 10.2 FL (9.6-12.0); Platelet Count 171 T/CUMM (130-400); Red Blood Count 2.02 MC/CUMM (3.8-5.5); Red Cell Distribution Width 19.9 % (9.3-17.3); White Blood Count 8.1 T/CUMM (4-12)
[2021-08-02 08:17] LABS: Hemoglobin 6.2 GM/DL (12.0-16.0)
[2021-08-02 08:44] LABS: Basophils # 0.1 10*3/uL (0.0-0.2); Basophils % 0.7 % (0.0-0.8); Eosinophils # 0.5 10*3/uL (0.0-0.87); Eosinophils % 6.7 % (0.00-10.9); Hematocrit 18.8 VOL% (35.7-47.0); Immature Granulocytes % 2.9 %; Immature Granulocytes Absolute 0.23 #; Lymphocytes # 1.3 10*3/uL (1.4-4.0); Lymphocytes % 16.6 % (21.3-54.2); Mean Corpuscular HGB Conc 31.9 GM/DL (32-36); Mean Corpuscular Volume 97.9 FL (87-102); Mean Platelet Volume 9.7 FL (9.6-12.0); Monocytes % 15.7 % (1.7-12.7); Neutrophils % 57.4 % (38.7-73.9); Platelet Count 154 T/CUMM (130-400); Red Blood Count 1.92 MC/CUMM (3.8-5.5); White Blood Count 8.1 T/CUMM (4-12)
[2021-08-02 08:48] LABS: Platelet Estimate Normal
[2021-08-02 08:49] LABS: Anisocytosis 3+; Macrocytosis 1+; Polychromasia 1+; Target Cells Few
[2021-08-02] MEDS ORDERED: SODIUM CHLORIDE 0.9% 1,000 ML IV PRN ×2 (08:49→15:08)
[2021-08-02 09:02] LABS: Eosinophils 4 % (0-10); Hypochromasia 2+; Lymphocytes 12 % (20-55); Platelet Estimate Adequate; Segmented Neutrophils 74 % (50-85); Total Cells Counted 100
[2021-08-02 09:03] LABS: Macrocytosis Slight; Polychromasia Slight
[2021-08-02] MEDS: POLYETHYLENE GLYCOL POWDER 17 GM PACK PO SCH ×3 (10:12→22:24)
[2021-08-02] MEDS: LOSARTAN 50 MG TABLET PO SCH (10:12)
[2021-08-02] MEDS: PANTOPRAZOLE 40 MG TABLET PO SCH (10:12)
[2021-08-02 14:54] LABS: Hematocrit 18.5 VOL% (35.7-47.0)
[2021-08-02 14:56] LABS: Hemoglobin 5.8 GM/DL (12.0-16.0)
[2021-08-02] MEDS ORDERED: HEPARIN 10,000 UNIT/10 ML VIAL IV SCH (16:30)
[2021-08-02 20:14] LABS: Hematocrit 34.9 VOL% (35.7-47.0)
[2021-08-02 20:15] LABS: Hemoglobin 11.2 GM/DL (12.0-16.0)
[2021-08-02] MEDS: metroNIDAZOLE 500 MG TABLET PO SCH ×2 (20:17→22:23)
[2021-08-02] MEDS: PANTOPRAZOLE 40 MG VIAL IV SCH (22:23)
[2021-08-02] MEDS: CIPROFLOXACIN 500 MG TABLET PO SCH (22:23)
[2021-08-02 22:30] LABS: Hemoglobin 11.6 GM/DL (12.0-16.0)
[2021-08-03 05:51] LABS: Basophils # 0.1 10*3/uL (0.0-0.2); Basophils % 1.2 % (0.0-0.8); Calcium 8.7 MG/DL (8.5-10.1); Eosinophils # 0.3 10*3/uL (0.0-0.87); Eosinophils % 2.8 % (0.00-10.9); Hematocrit 29.3 VOL% (35.7-47.0); Hemoglobin 9.9 GM/DL (12.0-16.0); Immature Granulocytes % 2.1 %; Immature Granulocytes Absolute 0.23 #; Lymphocytes # 1.6 10*3/uL (1.4-4.0); Lymphocytes % 14.7 % (21.3-54.2); Mean Corpuscular HGB Conc 33.8 GM/DL (32-36); Mean Corpuscular Volume 88.5 FL (87-102); Mean Platelet Volume 10.4 FL (9.6-12.0); Monocytes % 12.3 % (1.7-12.7); Neutrophils % 66.9 % (38.7-73.9); Osmolality,Calculated 272.8 MOS/KG (273-304); Platelet Count 122 T/CUMM (130-400); Potassium 3.5 MMOL/L (3.5-5.1); Red Blood Count 3.31 MC/CUMM (3.8-5.5); Red Cell Distribution Width 17.4 % (9.3-17.3)
[2021-08-03 05:56] LABS: Platelet Estimate Normal
[2021-08-03 05:57] LABS: Hypochromasia Slight
[2021-08-03] MEDS ORDERED: SODIUM CHLORIDE 0.9% 500 ML IV ONE (08:31)
[2021-08-03] MEDS ORDERED: NALOXONE 0.4 MG/ML VIAL IV ONE (08:35)
[2021-08-03 09:01] LABS: Basophils # 0.1 10*3/uL (0.0-0.2); Basophils % 0.6 % (0.0-0.8); Eosinophils # 0.2 10*3/uL (0.0-0.87); Eosinophils % 1.3 % (0.00-10.9); Hematocrit 26.1 VOL% (35.7-47.0); Hemoglobin 8.4 GM/DL (12.0-16.0); Immature Granulocytes % 2.6 %; Immature Granulocytes Absolute 0.37 #; Lymphocytes # 1.2 10*3/uL (1.4-4.0); Lymphocytes % 8.5 % (21.3-54.2); Mean Corpuscular HGB Conc 32.2 GM/DL (32-36); Mean Corpuscular Volume 89.7 FL (87-102); Mean Platelet Volume 10.4 FL (9.6-12.0); Monocytes % 9.7 % (1.7-12.7); NRBC # 0.03 10*3/uL; Neutrophils % 77.3 % (38.7-73.9); Platelet Count 127 T/CUMM (130-400); Red Blood Count 2.91 MC/CUMM (3.8-5.5); Red Cell Distribution Width 17.9 % (9.3-17.3); White Blood Count 14.4 T/CUMM (4-12)
[2021-08-03] MEDS: LOSARTAN 50 MG TABLET PO SCH (09:03)
[2021-08-03 09:19] LABS: Alanine Aminotransferase 29 U/L (13-56); Albumin 2.3 G/DL (3.4-5.0); Alkaline Phosphatase 54 U/L (45-117); Aspartate Amino Transferase 35 U/L (0-37); Blood Urea Nitrogen 14 MG/DL (7-18); Calcium 8.2 MG/DL (8.5-10.1); Carbon Dioxide 25 MMOL/L (21-32); Estimated Glom Filtration Rate 14 ML/MIN; Glucose 121 MG/DL (74-106); Osmolality,Calculated 284.1 MOS/KG (273-304); Potassium 3.6 MMOL/L (3.5-5.1); Sodium 142 MMOL/L (136-145); Total Protein 5.7 G/DL (6.4-8.2)
[2021-08-03] MEDS: PANTOPRAZOLE 40 MG VIAL IV SCH ×2 (10:20→23:30)
[2021-08-03] MEDS: metroNIDAZOLE 500 MG TABLET PO SCH ×3 (10:20→20:12)
[2021-08-03] MEDS: POLYETHYLENE GLYCOL POWDER 17 GM PACK PO SCH ×3 (10:21→21:51)
[2021-08-03] MEDS ORDERED: DIAZEPAM 5 MG TABLET PO ONE (12:13)
[2021-08-03] MEDS ORDERED: fentaNYL 100 MCG/2 ML VIAL IV ONE (12:13)
[2021-08-03] MEDS ORDERED: MIDAZOLAM 2 MG/2 ML VIAL IV ONE (12:13)
[2021-08-03] MEDS ORDERED: SODIUM CHLORIDE 0.45% 1,000 ML IV SCH (12:30)
[2021-08-03 13:44] LABS: Hematocrit 25.2 VOL% (35.7-47.0); Hemoglobin 8.1 GM/DL (12.0-16.0)
[2021-08-03] MEDS ORDERED: HEPARIN/NACL 0.9% 2 UNITS/ML 6,000 UNIT/3,000 ML BAG IV ONE (14:03)
[2021-08-03] MEDS ORDERED: ceFAZolin 1,000 MG VIAL ONE (14:14)
[2021-08-03] MEDS ORDERED: HEPARIN 5,000 UNIT/1 ML VIAL ONE (14:15)
[2021-08-03 17:29] LABS: Hematocrit 22.6 VOL% (35.7-47.0); Hemoglobin 7.3 GM/DL (12.0-16.0)
[2021-08-03] MEDS ORDERED: SODIUM CHLORIDE 0.9% 1,000 ML IV PRN ×2 (19:17→19:43)
[2021-08-03] MEDS: CIPROFLOXACIN 500 MG TABLET PO SCH (20:12)
[2021-08-03 22:49] LABS: Hematocrit 22.2 VOL% (35.7-47.0)
[2021-08-04] MEDS: metroNIDAZOLE 500 MG TABLET PO SCH ×3 (08:04→21:42)
[2021-08-04] MEDS: POLYETHYLENE GLYCOL POWDER 17 GM PACK PO SCH ×3 (08:05→21:46)
[2021-08-04] MEDS: PANTOPRAZOLE 40 MG VIAL IV SCH ×2 (08:05→21:53)
[2021-08-04] MEDS ORDERED: SODIUM CHLORIDE 0.9% 1,000 ML IV PRN (08:12)
[2021-08-04] MEDS: LOSARTAN 50 MG TABLET PO SCH (08:17)
[2021-08-04 09:19] LABS: Basophils # 0.1 10*3/uL (0.0-0.2); Basophils % 0.7 % (0.0-0.8); Eosinophils # 0.5 10*3/uL (0.0-0.87); Eosinophils % 4.2 % (0.00-10.9); Hematocrit 29.1 VOL% (35.7-47.0); Immature Granulocytes % 2.1 %; Immature Granulocytes Absolute 0.25 #; Lymphocytes # 1.5 10*3/uL (1.4-4.0); Lymphocytes % 12.2 % (21.3-54.2); Mean Corpuscular HGB Conc 32.3 GM/DL (32-36); Mean Corpuscular Volume 90.9 FL (87-102); Mean Platelet Volume 10.4 FL (9.6-12.0); Monocytes % 11.6 % (1.7-12.7); NRBC # 0.02 10*3/uL; Neutrophils % 69.2 % (38.7-73.9); Platelet Count 102 T/CUMM (130-400); Red Cell Distribution Width 16.7 % (9.3-17.3); White Blood Count 11.9 T/CUMM (4-12)
[2021-08-04 09:26] LABS: Hemoglobin 9.4 GM/DL (12.0-16.0)
[2021-08-04 09:39] LABS: Calcium 8.1 MG/DL (8.5-10.1); Osmolality,Calculated 278.8 MOS/KG (273-304); Potassium 3.6 MMOL/L (3.5-5.1)
[2021-08-04 16:31] LABS: Hematocrit 32.9 VOL% (35.7-47.0); Hemoglobin 10.5 GM/DL (12.0-16.0)
[2021-08-04 20:50] LABS: Hematocrit 33.8 VOL% (35.7-47.0); Hemoglobin 10.7 GM/DL (12.0-16.0)
[2021-08-04] MEDS: CIPROFLOXACIN 500 MG TABLET PO SCH (21:42)
[2021-08-05 06:00] LABS: Basophils # 0.1 10*3/uL (0.0-0.2); Basophils % 0.7 % (0.0-0.8); Eosinophils # 0.6 10*3/uL (0.0-0.87); Eosinophils % 5.5 % (0.00-10.9); Hematocrit 33.6 VOL% (35.7-47.0); Immature Granulocytes % 1.2 %; Immature Granulocytes Absolute 0.14 #; Lymphocytes # 1.4 10*3/uL (1.4-4.0); Lymphocytes % 12.4 % (21.3-54.2); Mean Corpuscular HGB Conc 32.7 GM/DL (32-36); Mean Corpuscular Volume 91.6 FL (87-102); Monocytes % 12.8 % (1.7-12.7); NRBC # 0.02 10*3/uL; Neutrophils % 67.4 % (38.7-73.9); Platelet Count 117 T/CUMM (130-400); Red Blood Count 3.67 MC/CUMM (3.8-5.5); Red Cell Distribution Width 17.6 % (9.3-17.3); White Blood Count 11.3 T/CUMM (4-12)
[2021-08-05 08:35] LABS: Hematocrit 32.7 VOL% (35.7-47.0); Hemoglobin 10.4 GM/DL (12.0-16.0)
[2021-08-05] MEDS: metroNIDAZOLE 500 MG TABLET PO SCH ×3 (09:06→21:35)
[2021-08-05] MEDS: LOSARTAN 50 MG TABLET PO SCH (09:06)
[2021-08-05] MEDS: MULTIVITAMIN (CENTRUM) TABLET PO SCH (09:06)
[2021-08-05] MEDS: POLYETHYLENE GLYCOL POWDER 17 GM PACK PO SCH ×3 (09:06→21:33)
[2021-08-05] MEDS: PANTOPRAZOLE 40 MG VIAL IV SCH ×2 (09:07→21:37)
[2021-08-05 09:41] LABS: Alanine Aminotransferase 22 U/L (13-56); Albumin 2.5 G/DL (3.4-5.0); Alkaline Phosphatase 85 U/L (45-117); Aspartate Amino Transferase 42 U/L (0-37); Bilirubin,Total < 0.39 MG/DL (0.20-1.00); Blood Urea Nitrogen 15 MG/DL (7-18); Calcium 8.6 MG/DL (8.5-10.1); Carbon Dioxide 29 MMOL/L (21-32); Estimated Glom Filtration Rate 11 ML/MIN; Glucose 109 MG/DL (74-106); Osmolality,Calculated 282.3 MOS/KG (273-304); Potassium 2.9 MMOL/L (3.5-5.1); Sodium 141 MMOL/L (136-145); Total Protein 6.3 G/DL (6.4-8.2)
[2021-08-05] MEDS ORDERED: POTASSIUM CHLORIDE 20 MEQ PACK PO ONE (11:00)
[2021-08-05 20:48] LABS: Hemoglobin 9.9 GM/DL (12.0-16.0)
[2021-08-05] MEDS: CIPROFLOXACIN 500 MG TABLET PO SCH (21:33)
[2021-08-06 05:32] LABS: Basophils # 0.1 10*3/uL (0.0-0.2); Basophils % 0.8 % (0.0-0.8); Eosinophils # 0.7 10*3/uL (0.0-0.87); Eosinophils % 8.7 % (0.00-10.9); Hematocrit 33.7 VOL% (35.7-47.0); Hemoglobin 10.4 GM/DL (12.0-16.0); Immature Granulocytes % 1.3 %; Immature Granulocytes Absolute 0.11 #; Lymphocytes # 1.1 10*3/uL (1.4-4.0); Lymphocytes % 13.1 % (21.3-54.2); Mean Corpuscular HGB Conc 30.9 GM/DL (32-36); Mean Corpuscular Volume 94.4 FL (87-102); Mean Platelet Volume 10.7 FL (9.6-12.0); Monocytes % 12.6 % (1.7-12.7); Neutrophils % 63.5 % (38.7-73.9); Platelet Count 124 T/CUMM (130-400); Red Blood Count 3.57 MC/CUMM (3.8-5.5); Red Cell Distribution Width 18.1 % (9.3-17.3); White Blood Count 8.3 T/CUMM (4-12)
[2021-08-06 05:57] LABS: Albumin 2.5 G/DL (3.4-5.0); Bilirubin,Total 1.3 MG/DL (0.20-1.00); Calcium 8.5 MG/DL (8.5-10.1); Osmolality,Calculated 277.8 MOS/KG (273-304); Total Protein 5.8 G/DL (6.4-8.2)
[2021-08-06] MEDS: PANTOPRAZOLE 40 MG VIAL IV SCH ×2 (08:23→22:25)
[2021-08-06] MEDS: POLYETHYLENE GLYCOL POWDER 17 GM PACK PO SCH ×3 (08:23→22:25)
[2021-08-06] MEDS: metroNIDAZOLE 500 MG TABLET PO SCH ×3 (08:23→22:25)
[2021-08-06] MEDS: LOSARTAN 50 MG TABLET PO SCH (08:23)
[2021-08-06] MEDS: MULTIVITAMIN (CENTRUM) TABLET PO SCH (08:23)
[2021-08-06] MEDS: CIPROFLOXACIN 500 MG TABLET PO SCH (22:25)
[2021-08-07 05:26] LABS: Basophils # 0.1 10*3/uL (0.0-0.2); Basophils % 0.6 % (0.0-0.8); Eosinophils # 0.8 10*3/uL (0.0-0.87); Eosinophils % 8.4 % (0.00-10.9); Hematocrit 31.2 VOL% (35.7-47.0); Hemoglobin 9.7 GM/DL (12.0-16.0); Immature Granulocytes % 1.3 %; Immature Granulocytes Absolute 0.12 #; Lymphocytes # 1.2 10*3/uL (1.4-4.0); Lymphocytes % 12.3 % (21.3-54.2); Mean Corpuscular HGB Conc 31.1 GM/DL (32-36); Mean Corpuscular Volume 95.4 FL (87-102); Mean Platelet Volume 10.6 FL (9.6-12.0); Monocytes % 14.2 % (1.7-12.7); Neutrophils % 63.2 % (38.7-73.9); Platelet Count 119 T/CUMM (130-400); Red Blood Count 3.27 MC/CUMM (3.8-5.5); Red Cell Distribution Width 18.1 % (9.3-17.3); White Blood Count 9.4 T/CUMM (4-12)
[2021-08-07 05:50] LABS: Anisocytosis 3+; Burr Cells Few; Platelet Estimate Adequate
[2021-08-07 05:51] LABS: Macrocytosis Slight; Target Cells Few
[2021-08-07 06:02] LABS: Albumin 2.3 G/DL (3.4-5.0); Bilirubin,Total 0.4 MG/DL (0.20-1.00); Osmolality,Calculated 272.1 MOS/KG (273-304); Potassium 4.3 MMOL/L (3.5-5.1); Total Protein 6.1 G/DL (6.4-8.2)
[2021-08-07] MEDS: PANTOPRAZOLE 40 MG VIAL IV SCH ×2 (10:49→20:05)
[2021-08-07] MEDS: POLYETHYLENE GLYCOL POWDER 17 GM PACK PO SCH ×3 (10:50→20:19)
[2021-08-07] MEDS: metroNIDAZOLE 500 MG TABLET PO SCH ×3 (10:50→20:05)
[2021-08-07] MEDS: MULTIVITAMIN (CENTRUM) TABLET PO SCH (10:50)
[2021-08-07] MEDS: LOSARTAN 50 MG TABLET PO SCH (10:50)
[2021-08-07] MEDS: ACETAMINOPHEN 325 MG TABLET PO PRN (20:05)
[2021-08-07] MEDS: CIPROFLOXACIN 500 MG TABLET PO SCH (20:05)
[2021-08-08 05:37] LABS: Albumin 2.3 G/DL (3.4-5.0); Bilirubin,Total 0.8 MG/DL (0.20-1.00); Calcium 8.5 MG/DL (8.5-10.1); Osmolality,Calculated 281.7 MOS/KG (273-304); Potassium 4.3 MMOL/L (3.5-5.1)
[2021-08-08] MEDS: POLYETHYLENE GLYCOL POWDER 17 GM PACK PO SCH ×3 (08:52→19:59)
[2021-08-08] MEDS: PANTOPRAZOLE 40 MG VIAL IV SCH ×2 (08:52→20:00)
[2021-08-08] MEDS: MULTIVITAMIN (CENTRUM) TABLET PO SCH (08:53)
[2021-08-08] MEDS: metroNIDAZOLE 500 MG TABLET PO SCH ×3 (08:53→19:59)
[2021-08-08] MEDS: LOSARTAN 50 MG TABLET PO SCH (08:53)
[2021-08-08 10:34] LABS: Basophils # 0.1 10*3/uL (0.0-0.2); Basophils % 0.6 % (0.0-0.8); Eosinophils # 0.6 10*3/uL (0.0-0.87); Eosinophils % 7.3 % (0.00-10.9); Hematocrit 34.7 VOL% (35.7-47.0); Hemoglobin 10.6 GM/DL (12.0-16.0); Immature Granulocytes % 0.8 %; Immature Granulocytes Absolute 0.07 #; Lymphocytes # 1.2 10*3/uL (1.4-4.0); Lymphocytes % 14.1 % (21.3-54.2); Mean Corpuscular HGB Conc 30.5 GM/DL (32-36); Mean Corpuscular Volume 95.3 FL (87-102); Mean Platelet Volume 10.7 FL (9.6-12.0); Neutrophils % 63.2 % (38.7-73.9); Platelet Count 175 T/CUMM (130-400); Red Blood Count 3.64 MC/CUMM (3.8-5.5); Red Cell Distribution Width 18.4 % (9.3-17.3); White Blood Count 8.7 T/CUMM (4-12)
[2021-08-08] MEDS: ACETAMINOPHEN 325 MG TABLET PO PRN (19:43)
[2021-08-08] MEDS: CIPROFLOXACIN 500 MG TABLET PO SCH (19:59)
[2021-08-09 05:13] LABS: Basophils # 0.1 10*3/uL (0.0-0.2); Basophils % 0.9 % (0.0-0.8); Eosinophils # 0.7 10*3/uL (0.0-0.87); Eosinophils % 7.4 % (0.00-10.9); Hematocrit 33.1 VOL% (35.7-47.0); Hemoglobin 10.4 GM/DL (12.0-16.0); Immature Granulocytes Absolute 0.09 #; Lymphocytes # 1.1 10*3/uL (1.4-4.0); Lymphocytes % 12.1 % (21.3-54.2); Mean Corpuscular HGB Conc 31.4 GM/DL (32-36); Mean Corpuscular Volume 93.8 FL (87-102); Mean Platelet Volume 10.1 FL (9.6-12.0); Monocytes % 16.6 % (1.7-12.7); Platelet Count 200 T/CUMM (130-400); Red Blood Count 3.53 MC/CUMM (3.8-5.5); Red Cell Distribution Width 17.7 % (9.3-17.3); White Blood Count 8.8 T/CUMM (4-12)
[2021-08-09 05:31] LABS: Calcium 8.2 MG/DL (8.5-10.1); Potassium 4.6 MMOL/L (3.5-5.1)
[2021-08-09 05:38] LABS: Eosinophils 9 % (0-10); Hypochromasia 1+; Lymphocytes 15 % (20-55); Segmented Neutrophils 56 % (50-85); Total Cells Counted 100
[2021-08-09 05:39] LABS: Acanthocytes Few; Anisocytosis 1+; Microcytosis 1+
[2021-08-09 05:40] LABS: Platelet Estimate Normal
[2021-08-09] MEDS: MULTIVITAMIN (CENTRUM) TABLET PO SCH (08:49)
[2021-08-09] MEDS: LOSARTAN 50 MG TABLET PO SCH (08:49)
[2021-08-09] MEDS: PANTOPRAZOLE 40 MG VIAL IV SCH ×2 (08:50→21:56)
[2021-08-09] MEDS: POLYETHYLENE GLYCOL POWDER 17 GM PACK PO SCH ×3 (08:50→21:56)
[2021-08-09] MEDS: metroNIDAZOLE 500 MG TABLET PO SCH ×3 (08:50→21:56)
[2021-08-09] MEDS: CIPROFLOXACIN 500 MG TABLET PO SCH (21:56)
[2021-08-10 06:00] LABS: Basophils # 0.1 10*3/uL (0.0-0.2); Basophils % 0.7 % (0.0-0.8); Eosinophils # 0.5 10*3/uL (0.0-0.87); Eosinophils % 6.4 % (0.00-10.9); Hematocrit 34.2 VOL% (35.7-47.0); Hemoglobin 10.7 GM/DL (12.0-16.0); Immature Granulocytes % 0.9 %; Immature Granulocytes Absolute 0.07 #; Lymphocytes # 0.7 10*3/uL (1.4-4.0); Lymphocytes % 9.1 % (21.3-54.2); Mean Corpuscular HGB Conc 31.3 GM/DL (32-36); Mean Corpuscular Volume 96.3 FL (87-102); Mean Platelet Volume 10.6 FL (9.6-12.0); Neutrophils % 68.9 % (38.7-73.9); Platelet Count 184 T/CUMM (130-400); Red Blood Count 3.55 MC/CUMM (3.8-5.5); Red Cell Distribution Width 18.1 % (9.3-17.3); White Blood Count 8.1 T/CUMM (4-12)
[2021-08-10 06:14] LABS: Calcium 8.1 MG/DL (8.5-10.1); Potassium 4.4 MMOL/L (3.5-5.1)
[2021-08-10] MEDS: MULTIVITAMIN (CENTRUM) TABLET PO SCH (09:07)
[2021-08-10] MEDS: POLYETHYLENE GLYCOL POWDER 17 GM PACK PO SCH ×3 (09:07→20:34)
[2021-08-10] MEDS: LOSARTAN 50 MG TABLET PO SCH (09:07)
[2021-08-10] MEDS: PANTOPRAZOLE 40 MG TABLET PO SCH ×2 (09:07→20:34)
[2021-08-11 05:20] LABS: Basophils # 0.1 10*3/uL (0.0-0.2); Basophils % 0.7 % (0.0-0.8); Eosinophils # 0.6 10*3/uL (0.0-0.87); Eosinophils % 6.1 % (0.00-10.9); Hematocrit 34.3 VOL% (35.7-47.0); Hemoglobin 10.6 GM/DL (12.0-16.0); Immature Granulocytes % 0.9 %; Immature Granulocytes Absolute 0.08 #; Lymphocytes # 0.9 10*3/uL (1.4-4.0); Lymphocytes % 9.9 % (21.3-54.2); Mean Corpuscular HGB Conc 30.9 GM/DL (32-36); Mean Corpuscular Volume 96.1 FL (87-102); Mean Platelet Volume 10.4 FL (9.6-12.0); Monocytes % 20.5 % (1.7-12.7); Neutrophils % 61.9 % (38.7-73.9); Platelet Count 223 T/CUMM (130-400); Red Blood Count 3.57 MC/CUMM (3.8-5.5); Red Cell Distribution Width 17.8 % (9.3-17.3)
[2021-08-11 05:34] LABS: Calcium 8.6 MG/DL (8.5-10.1); Osmolality,Calculated 281.8 MOS/KG (273-304); Potassium 4.5 MMOL/L (3.5-5.1)
[2021-08-11 05:55] LABS: Anisocytosis 3+; Band Neutrophils 2 % (0-10); Burr Cells 1+; Eosinophils 10 % (0-10); Lymphocytes 12 % (20-55); Metamyelocytes 1 %; Platelet Estimate Normal; Segmented Neutrophils 55 % (50-85); Total Cells Counted 100
[2021-08-11 05:56] LABS: Macrocytosis 1+; Ovalocytes Few; Target Cells Few
[2021-08-11] MEDS: LOSARTAN 50 MG TABLET PO SCH (09:01)
[2021-08-11] MEDS: POLYETHYLENE GLYCOL POWDER 17 GM PACK PO SCH ×2 (09:01→15:48)
[2021-08-11] MEDS: MULTIVITAMIN (CENTRUM) TABLET PO SCH (09:01)
[2021-08-11] MEDS: PANTOPRAZOLE 40 MG TABLET PO SCH ×2 (09:01→20:44)
[2021-08-12 05:50] LABS: Basophils # 0.1 10*3/uL (0.0-0.2); Basophils % 0.7 % (0.0-0.8); Eosinophils # 0.5 10*3/uL (0.0-0.87); Eosinophils % 6.3 % (0.00-10.9); Hematocrit 32.7 VOL% (35.7-47.0); Hemoglobin 9.9 GM/DL (12.0-16.0); Immature Granulocytes % 0.6 %; Immature Granulocytes Absolute 0.05 #; Lymphocytes # 1.1 10*3/uL (1.4-4.0); Mean Corpuscular HGB Conc 30.3 GM/DL (32-36); Mean Corpuscular Volume 96.7 FL (87-102); Mean Platelet Volume 10.3 FL (9.6-12.0); Monocytes % 19.7 % (1.7-12.7); Neutrophils % 59.7 % (38.7-73.9); Platelet Count 198 T/CUMM (130-400); Red Blood Count 3.38 MC/CUMM (3.8-5.5); Red Cell Distribution Width 17.7 % (9.3-17.3); White Blood Count 8.5 T/CUMM (4-12)
[2021-08-12 06:05] LABS: Calcium 8.1 MG/DL (8.5-10.1); Osmolality,Calculated 283.4 MOS/KG (273-304); Potassium 4.1 MMOL/L (3.5-5.1)
[2021-08-12 06:17] LABS: Band Neutrophils 1 % (0-10); Eosinophils 6 % (0-10); Hypochromasia 1+; Lymphocytes 12 % (20-55); Segmented Neutrophils 68 % (50-85); Total Cells Counted 100
[2021-08-12 06:18] LABS: Anisocytosis 1+; Microcytosis 1+; Platelet Estimate Adequate
[2021-08-12] MEDS: LOSARTAN 50 MG TABLET PO SCH (08:51)
[2021-08-12] MEDS: PANTOPRAZOLE 40 MG TABLET PO SCH ×2 (08:51→20:53)
[2021-08-12] MEDS: MULTIVITAMIN (CENTRUM) TABLET PO SCH (08:51)
[2021-08-12] MEDS: ACETAMINOPHEN 325 MG TABLET PO PRN (15:18)
[2021-08-12] MEDS: hydrALAZINE 20 MG/1 ML VIAL IV PRN (15:18)
[2021-08-13 05:18] LABS: Basophils # 0.1 10*3/uL (0.0-0.2); Basophils % 0.7 % (0.0-0.8); Eosinophils # 0.7 10*3/uL (0.0-0.87); Eosinophils % 8.3 % (0.00-10.9); Hematocrit 32.3 VOL% (35.7-47.0); Immature Granulocytes % 0.6 %; Immature Granulocytes Absolute 0.05 #; Lymphocytes % 11.3 % (21.3-54.2); Mean Corpuscular Volume 95.8 FL (87-102); Mean Platelet Volume 10.2 FL (9.6-12.0); Monocytes % 16.2 % (1.7-12.7); Neutrophils % 62.9 % (38.7-73.9); Platelet Count 215 T/CUMM (130-400); Red Blood Count 3.37 MC/CUMM (3.8-5.5); Red Cell Distribution Width 17.6 % (9.3-17.3); White Blood Count 8.5 T/CUMM (4-12)
[2021-08-13 05:40] LABS: Calcium 8.1 MG/DL (8.5-10.1); Osmolality,Calculated 287.4 MOS/KG (273-304); Potassium 4.6 MMOL/L (3.5-5.1)
[2021-08-13 06:44] LABS: Eosinophils 13 % (0-10); Lymphocytes 11 % (20-55); Platelet Estimate Normal; Segmented Neutrophils 68 % (50-85); Total Cells Counted 100
[2021-08-13 08:06] VITALS: BP 130/53
[2021-08-13] MEDS: MULTIVITAMIN (CENTRUM) TABLET PO SCH (11:28)
[2021-08-13] MEDS: LOSARTAN 50 MG TABLET PO SCH (11:28)
[2021-08-13] MEDS: PANTOPRAZOLE 40 MG TABLET PO SCH (11:29)
== END 2021-08-13 11:56 | DRG 356 ==
LOC: EDUNIT# → EDBD → N.ED 12:39 → N.EDINP 15:47 → SUATTDRO 15:47 → N.5E 17:10
PROVIDERS: ADMIT Internal Medicine; ATTEND Internal Medicine

== ENCOUNTER 2021-11-06 13:49 | Inpatient (IN) ==
[2021-11-06] MEDS ORDERED: SODIUM CHLORIDE 0.9% 500 ML IV STA (14:21)
[2021-11-06 14:42] LABS: Basophils # 0.1 10*3/uL (0.0-0.2); Basophils % 0.8 % (0.0-0.8); Eosinophils # 0.4 10*3/uL (0.0-0.87); Eosinophils % 4.7 % (0.00-10.9); Hematocrit 25.7 VOL% (35.7-47.0); Hemoglobin 8.6 GM/DL (12.0-16.0); Immature Granulocytes % 0.8 %; Immature Granulocytes Absolute 0.06 #; Lymphocytes # 0.7 10*3/uL (1.4-4.0); Lymphocytes % 8.5 % (21.3-54.2); Mean Corpuscular HGB Conc 33.5 GM/DL (32-36); Mean Corpuscular Volume 94.5 FL (87-102); Mean Platelet Volume 10.8 FL (9.6-12.0); Neutrophils % 72.2 % (38.7-73.9); Platelet Count 252 T/CUMM (130-400); Red Blood Count 2.72 MC/CUMM (3.8-5.5); Red Cell Distribution Width 20.1 % (9.3-17.3); White Blood Count 7.8 T/CUMM (4-12)
[2021-11-06 14:59] LABS: Albumin 1.8 G/DL (3.4-5.0); Bilirubin,Total 0.4 MG/DL (0.20-1.00); Calcium 8.3 MG/DL (8.5-10.1); Potassium 4.4 MMOL/L (3.5-5.1); Total Protein 6.8 G/DL (6.4-8.2)
[2021-11-06] MEDS ORDERED: GLUCAGON 1 MG VIAL IM PRN (16:20)
[2021-11-06] MEDS ORDERED: ONDANSETRON 4 MG/2 ML VIAL IV PRN (16:20)
[2021-11-06] MEDS ORDERED: DEXTROSE 10% 250 ML BAG IV PRN (16:20)
[2021-11-06] MEDS: cefTRIAXone 2,000 MG in SODIUM CHLORIDE 0.9% 100 ML IV SCH (17:36)
[2021-11-06] MEDS: AZITHROMYCIN INJ 500 MG in SODIUM CHLORIDE 0.9% 250 ML IV SCH (17:58)
[2021-11-06] MEDS: HEPARIN 5,000 UNIT/1 ML VIAL SUBCUT SCH (21:51)
[2021-11-07] MEDS ORDERED: KETOROLAC 15 MG/1 ML VIAL IV ONE (00:41)
[2021-11-07 05:23] LABS: Basophils # 0.1 10*3/uL (0.0-0.2); Basophils % 1.4 % (0.0-0.8); Eosinophils # 0.4 10*3/uL (0.0-0.87); Eosinophils % 5.2 % (0.00-10.9); Hematocrit 28.4 VOL% (35.7-47.0); Immature Granulocytes % 0.6 %; Immature Granulocytes Absolute 0.04 #; Lymphocytes # 0.7 10*3/uL (1.4-4.0); Lymphocytes % 9.4 % (21.3-54.2); Mean Corpuscular HGB Conc 31.7 GM/DL (32-36); Mean Platelet Volume 10.2 FL (9.6-12.0); Monocytes % 12.6 % (1.7-12.7); Neutrophils % 70.8 % (38.7-73.9); Platelet Count 279 T/CUMM (130-400); Red Blood Count 3.02 MC/CUMM (3.8-5.5); Red Cell Distribution Width 19.9 % (9.3-17.3); White Blood Count 6.9 T/CUMM (4-12)
[2021-11-07 05:50] LABS: Ferritin 2754.7 ng/mL (8-252)
[2021-11-07 07:37] LABS: Calcium 8.4 MG/DL (8.5-10.1); Osmolality,Calculated 277.4 MOS/KG (273-304); Potassium 3.4 MMOL/L (3.5-5.1); Thyroid Stimulating Hormone 3.48 uIU/ml (0.358-3.74)
[2021-11-07] MEDS: CETIRIZINE 10 MG TABLET PO SCH (10:10)
[2021-11-07] MEDS: FAMOTIDINE 20 MG TABLET PO SCH ×2 (10:10→22:24)
[2021-11-07] MEDS: ASCORBIC ACID 500 MG TABLET PO SCH ×2 (10:10→22:25)
[2021-11-07] MEDS: HEPARIN 5,000 UNIT/1 ML VIAL SUBCUT SCH ×2 (10:10→22:24)
[2021-11-07] MEDS: AZITHROMYCIN INJ 500 MG in SODIUM CHLORIDE 0.9% 250 ML IV SCH (10:10)
[2021-11-07] MEDS: CHOLECALCIFEROL 1,000 UNIT TABLET PO SCH (10:10)
[2021-11-07] MEDS: ZINC GLUCONATE 50 MG TABLET PO SCH (10:15)
[2021-11-07] MEDS: cefTRIAXone 2,000 MG in SODIUM CHLORIDE 0.9% 100 ML IV SCH ×2 (10:40→11:24)
[2021-11-08 06:01] LABS: Calcium 8.8 MG/DL (8.5-10.1)
[2021-11-08 06:37] LABS: Ferritin 2760.5 ng/mL (8-252)
[2021-11-08] MEDS: CHOLECALCIFEROL 1,000 UNIT TABLET PO SCH (10:34)
[2021-11-08] MEDS: HEPARIN 5,000 UNIT/1 ML VIAL SUBCUT SCH ×2 (10:34→20:34)
[2021-11-08] MEDS: ZINC GLUCONATE 50 MG TABLET PO SCH (10:34)
[2021-11-08] MEDS: FAMOTIDINE 20 MG TABLET PO SCH ×2 (10:34→20:27)
[2021-11-08] MEDS: ASCORBIC ACID 500 MG TABLET PO SCH ×2 (10:34→20:27)
[2021-11-08] MEDS: cefTRIAXone 2,000 MG in SODIUM CHLORIDE 0.9% 100 ML IV SCH (10:34)
[2021-11-08] MEDS: CETIRIZINE 10 MG TABLET PO SCH (10:34)
[2021-11-08 10:43] LABS: Basophils # 0.1 # (0.0-0.1); Basophils % 0.9 % (0.2-1.0); Eosinophils # 0.8 # (0.0-0.70); Eosinophils % 13.2 % (0.0-10.0); Hematocrit 28.9 VOL% (37.0-47.0); Hemoglobin 9.6 GM/DL (12.0-16.0); Lymphocytes # 0.8 # (1.3-2.9); Mean Corpuscular HGB Conc 33.2 GM/DL (32-36); Mean Corpuscular Volume 94.4 FL (81-99); Mean Platelet Volume 10.5 FL (7.4-10.4); Monocytes % 11.8 % (5.5-11.7); Neutrophils % 61.8 % (43.0-65.0); Platelet Count 305 T/CUMM (130-400); Red Blood Count 3.06 MC/CUMM (4.20-5.40); Red Cell Distribution Width 19.7 % (11.5-15.5); White Blood Count 6.4 T/CUMM (4.8-10.8)
[2021-11-08] MEDS: AZITHROMYCIN INJ 500 MG in SODIUM CHLORIDE 0.9% 250 ML IV SCH (11:20)
[2021-11-08] MEDS: hydrALAZINE 20 MG/1 ML VIAL IV PRN (23:56)
[2021-11-09] MEDS: hydrALAZINE 20 MG/1 ML VIAL IV PRN ×2 (05:39→13:24)
[2021-11-09 05:53] LABS: Basophils # 0.1 10*3/uL (0.0-0.2); Basophils % 1.5 % (0.0-0.8); Eosinophils # 0.9 10*3/uL (0.0-0.87); Eosinophils % 13.9 % (0.00-10.9); Hematocrit 31.2 VOL% (35.7-47.0); Hemoglobin 10.2 GM/DL (12.0-16.0); Immature Granulocytes % 0.7 %; Immature Granulocytes Absolute 0.05 #; Lymphocytes % 15.2 % (21.3-54.2); Mean Corpuscular HGB Conc 32.7 GM/DL (32-36); Mean Corpuscular Volume 94.3 FL (87-102); Mean Platelet Volume 10.7 FL (9.6-12.0); Monocytes % 14.8 % (1.7-12.7); Neutrophils % 53.9 % (38.7-73.9); Platelet Count 362 T/CUMM (130-400); Red Blood Count 3.31 MC/CUMM (3.8-5.5); Red Cell Distribution Width 19.9 % (9.3-17.3); White Blood Count 6.7 T/CUMM (4-12)
[2021-11-09 06:02] LABS: Calcium 8.6 MG/DL (8.5-10.1); Osmolality,Calculated 281.2 MOS/KG (273-304); Potassium 4.2 MMOL/L (3.5-5.1)
[2021-11-09 06:22] LABS: Band Neutrophils 1 % (0-10); Eosinophils 10 % (0-10); Hypochromia Slight; Lymphocytes 13 % (20-55); Microcytosis Slight; Platelet Estimate Adequate; Segmented Neutrophils 68 % (50-85); Total Cells Counted 100
[2021-11-09 06:27] LABS: Ferritin 3184.9 ng/mL (8-252)
[2021-11-09] MEDS ORDERED: hydrALAZINE 20 MG/1 ML VIAL IV ONE (08:05)
[2021-11-09] MEDS: hydrOXYzine HCL 10 MG TABLET PO PRN (08:53)
[2021-11-09] MEDS: cefTRIAXone 2,000 MG in SODIUM CHLORIDE 0.9% 100 ML IV SCH (08:55)
[2021-11-09] MEDS: AZITHROMYCIN INJ 500 MG in SODIUM CHLORIDE 0.9% 250 ML IV SCH (09:28)
[2021-11-09] MEDS ORDERED: MORPHINE 4 MG/1 ML VIAL IV ONE (10:40)
[2021-11-09] MEDS: CETIRIZINE 10 MG TABLET PO SCH (13:23)
[2021-11-09] MEDS: SODIUM HYPOCHLORITE 0.25% IRRIG 473 ML BOTTLE TOP SCH (13:23)
[2021-11-09] MEDS: CHOLECALCIFEROL 1,000 UNIT TABLET PO SCH (13:23)
[2021-11-09] MEDS: ASCORBIC ACID 500 MG TABLET PO SCH ×2 (13:23→20:33)
[2021-11-09] MEDS: FAMOTIDINE 20 MG TABLET PO SCH ×2 (13:23→20:33)
[2021-11-09] MEDS: ZINC GLUCONATE 50 MG TABLET PO SCH (14:29)
[2021-11-09] MEDS: HEPARIN 5,000 UNIT/1 ML VIAL SUBCUT SCH (14:30)
[2021-11-09] MEDS ORDERED: HEPARIN 10,000 UNIT/10 ML VIAL IV SCH (15:30)
[2021-11-09] MEDS: ATORVASTATIN 40 MG TABLET PO SCH (20:33)
[2021-11-09] MEDS: carvediloL 12.5 MG TABLET PO SCH (20:34)
[2021-11-09] MEDS ORDERED: LORazepam 2 MG/1 ML VIAL IM ONE (22:17)
[2021-11-10] MEDS: hydrALAZINE 20 MG/1 ML VIAL IV PRN (04:30)
[2021-11-10 05:30] LABS: Basophils % 0.6 % (0.0-0.8); Eosinophils # 0.5 10*3/uL (0.0-0.87); Eosinophils % 7.5 % (0.00-10.9); Hematocrit 23.8 VOL% (35.7-47.0); Hemoglobin 7.8 GM/DL (12.0-16.0); Immature Granulocytes % 1.1 %; Immature Granulocytes Absolute 0.08 #; Lymphocytes # 0.8 10*3/uL (1.4-4.0); Mean Corpuscular HGB Conc 32.8 GM/DL (32-36); Mean Corpuscular Volume 93.7 FL (87-102); Mean Platelet Volume 10.3 FL (9.6-12.0); Monocytes % 12.4 % (1.7-12.7); Neutrophils % 67.4 % (38.7-73.9); Platelet Count 229 T/CUMM (130-400); Red Blood Count 2.54 MC/CUMM (3.8-5.5); Red Cell Distribution Width 19.9 % (9.3-17.3); White Blood Count 7.2 T/CUMM (4-12)
[2021-11-10 05:58] LABS: Band Neutrophils 2 % (0-10); Eosinophils 10 % (0-10); Hypochromia 1+; Lymphocytes 10 % (20-55); Segmented Neutrophils 67 % (50-85); Target Cells Few; Total Cells Counted 100
[2021-11-10 05:59] LABS: Microcytosis Slight; Platelet Estimate Normal
[2021-11-10 06:52] LABS: Calcium 8.7 MG/DL (8.5-10.1); Osmolality,Calculated 275.8 MOS/KG (273-304); Potassium 3.8 MMOL/L (3.5-5.1)
[2021-11-10 08:09] LABS: Ferritin 3150.2 ng/mL (8-252)
[2021-11-10] MEDS ORDERED: TUBERCULIN SKIN TEST 0.1 ML SYRINGE INTRADERM ONE (08:32)
[2021-11-10] MEDS: AZITHROMYCIN INJ 500 MG in SODIUM CHLORIDE 0.9% 250 ML IV SCH (09:23)
[2021-11-10] MEDS ORDERED: fentaNYL 100 MCG/2 ML VIAL ONE (09:52)
[2021-11-10] MEDS ORDERED: SODIUM CHLORIDE 0.9% 250 ML IV SCH (10:30)
[2021-11-10] MEDS ORDERED: LIDOCAINE 2% 5 ML VIAL ONE (11:00)
[2021-11-10] MEDS ORDERED: propofoL 200 MG/20 ML VIAL IV ONE (11:00)
[2021-11-10] MEDS ORDERED: MORPHINE 10 MG/1 ML VIAL ONE (11:49)
[2021-11-10] MEDS ORDERED: MORPHINE 10 MG/1 ML VIAL IV PRN (11:53)
[2021-11-10] MEDS: cefTRIAXone 2,000 MG in SODIUM CHLORIDE 0.9% 100 ML IV SCH (12:43)
[2021-11-10] MEDS: ZINC GLUCONATE 50 MG TABLET PO SCH (14:46)
[2021-11-10] MEDS: ASCORBIC ACID 500 MG TABLET PO SCH ×2 (14:46→21:55)
[2021-11-10] MEDS: CHOLECALCIFEROL 1,000 UNIT TABLET PO SCH (14:46)
[2021-11-10] MEDS: FAMOTIDINE 20 MG TABLET PO SCH ×2 (14:46→21:55)
[2021-11-10] MEDS: LOSARTAN 50 MG TABLET PO SCH (14:47)
[2021-11-10] MEDS: CETIRIZINE 10 MG TABLET PO SCH (14:47)
[2021-11-10] MEDS: carvediloL 12.5 MG TABLET PO SCH ×2 (14:47→21:56)
[2021-11-10] MEDS: SODIUM HYPOCHLORITE 0.25% IRRIG 473 ML BOTTLE TOP SCH (14:48)
[2021-11-10] MEDS: ATORVASTATIN 40 MG TABLET PO SCH (21:55)
[2021-11-11 05:11] LABS: Basophils % 0.1 % (0.0-0.8); Eosinophils # 0.2 10*3/uL (0.0-0.87); Eosinophils % 3.4 % (0.00-10.9); Immature Granulocytes % 1.3 %; Immature Granulocytes Absolute 0.09 #; Lymphocytes # 0.7 10*3/uL (1.4-4.0); Lymphocytes % 10.9 % (21.3-54.2); Mean Corpuscular HGB Conc 32.8 GM/DL (32-36); Mean Corpuscular Volume 94.2 FL (87-102); Mean Platelet Volume 10.6 FL (9.6-12.0); Monocytes % 12.9 % (1.7-12.7); Neutrophils % 71.4 % (38.7-73.9); Platelet Count 185 T/CUMM (130-400); Red Blood Count 1.91 MC/CUMM (3.8-5.5); Red Cell Distribution Width 20.2 % (9.3-17.3); White Blood Count 6.8 T/CUMM (4-12)
[2021-11-11 05:13] LABS: Hemoglobin 5.9 GM/DL (12.0-16.0)
[2021-11-11 05:22] LABS: Calcium 8.3 MG/DL (8.5-10.1); Osmolality,Calculated 275.5 MOS/KG (273-304); Potassium 3.6 MMOL/L (3.5-5.1)
[2021-11-11] MEDS ORDERED: SODIUM CHLORIDE 0.9% 1,000 ML IV PRN (05:30)
[2021-11-11 05:34] LABS: Anisocytosis 1+; Eosinophils 5 % (0-10); Hypochromia 1+; Lymphocytes 5 % (20-55); Segmented Neutrophils 82 % (50-85); Total Cells Counted 100
[2021-11-11 05:35] LABS: Microcytosis 1+; Platelet Estimate Adequate
[2021-11-11 06:33] LABS: Ferritin 3164.7 ng/mL (8-252)
[2021-11-11] MEDS: ASCORBIC ACID 500 MG TABLET PO SCH ×2 (10:29→22:14)
[2021-11-11] MEDS: CETIRIZINE 10 MG TABLET PO SCH (10:29)
[2021-11-11] MEDS: cefTRIAXone 2,000 MG in SODIUM CHLORIDE 0.9% 100 ML IV SCH (10:29)
[2021-11-11] MEDS: CHOLECALCIFEROL 1,000 UNIT TABLET PO SCH (10:29)
[2021-11-11] MEDS: ZINC GLUCONATE 50 MG TABLET PO SCH (10:29)
[2021-11-11] MEDS: FAMOTIDINE 20 MG TABLET PO SCH ×2 (10:29→22:13)
[2021-11-11] MEDS: SODIUM HYPOCHLORITE 0.25% IRRIG 473 ML BOTTLE TOP SCH (10:34)
[2021-11-11] MEDS: AZITHROMYCIN INJ 500 MG in SODIUM CHLORIDE 0.9% 250 ML IV SCH (11:24)
[2021-11-11] MEDS: ATORVASTATIN 40 MG TABLET PO SCH (22:13)
[2021-11-11] MEDS: hydrOXYzine HCL 10 MG TABLET PO PRN (22:14)
[2021-11-12] MEDS: hydrOXYzine HCL 10 MG TABLET PO PRN ×2 (04:40→14:51)
[2021-11-12 05:41] LABS: Basophils # 0.1 10*3/uL (0.0-0.2); Basophils % 0.7 % (0.0-0.8); Eosinophils # 0.6 10*3/uL (0.0-0.87); Immature Granulocytes % 0.9 %; Immature Granulocytes Absolute 0.08 #; Lymphocytes # 0.9 10*3/uL (1.4-4.0); Lymphocytes % 9.7 % (21.3-54.2); Mean Corpuscular HGB Conc 32.4 GM/DL (32-36); Mean Corpuscular Volume 87.4 FL (87-102); Mean Platelet Volume 10.4 FL (9.6-12.0); Monocytes % 17.4 % (1.7-12.7); Neutrophils % 65.3 % (38.7-73.9); Platelet Count 168 T/CUMM (130-400); Red Blood Count 3.89 MC/CUMM (3.8-5.5); Red Cell Distribution Width 20.2 % (9.3-17.3); White Blood Count 9.1 T/CUMM (4-12)
[2021-11-12 05:56] LABS: Calcium 8.5 MG/DL (8.5-10.1); Osmolality,Calculated 271.8 MOS/KG (273-304); Potassium 3.6 MMOL/L (3.5-5.1)
[2021-11-12 06:04] LABS: Band Neutrophils 1 % (0-10); Eosinophils 8 % (0-10); Hypochromia Slight; Lymphocytes 1 % (20-55); Microcytosis Slight; Platelet Estimate Adequate; Segmented Neutrophils 79 % (50-85); Total Cells Counted 100
[2021-11-12 06:14] LABS: Ferritin 3845.5 ng/mL (8-252)
[2021-11-12] MEDS: CHOLECALCIFEROL 1,000 UNIT TABLET PO SCH (09:14)
[2021-11-12] MEDS: ASCORBIC ACID 500 MG TABLET PO SCH (09:14)
[2021-11-12] MEDS: carvediloL 12.5 MG TABLET PO SCH (09:14)
[2021-11-12] MEDS: LOSARTAN 50 MG TABLET PO SCH (09:14)
[2021-11-12] MEDS: CETIRIZINE 10 MG TABLET PO SCH (09:14)
[2021-11-12] MEDS: ZINC GLUCONATE 50 MG TABLET PO SCH (09:14)
[2021-11-12] MEDS: FAMOTIDINE 20 MG TABLET PO SCH (09:15)
[2021-11-12] MEDS: cefTRIAXone 2,000 MG in SODIUM CHLORIDE 0.9% 100 ML IV SCH (09:15)
[2021-11-12] MEDS: AZITHROMYCIN INJ 500 MG in SODIUM CHLORIDE 0.9% 250 ML IV SCH (10:13)
[2021-11-12 16:15] VITALS: BP 93/37
[2021-11-13] MEDS ORDERED: CEFDINIR 300 MG CAPSULE PO SCH (09:00)
[2021-11-13] MEDS ORDERED: AZITHROMYCIN 250 MG TABLET PO SCH (09:00)
== END 2021-11-12 16:21 | disposition swing bed (61) | DRG 166 ==
LOC: N.ED 13:49 → INTOOBSV 16:17 → OBSVTOIN 16:17 → SUATTDRO 16:17 → N.EDINP 16:17 → N.TELEN 20:00
PROVIDERS: ADMIT Hospitalist; ATTEND Internal Medicine

== ENCOUNTER 2021-11-14 13:14 | Inpatient (IN) ==
[2021-11-14 13:48] LABS: Basophils # 0.1 10*3/uL (0.0-0.2); Basophils % 0.7 % (0.0-0.8); Eosinophils # 0.5 10*3/uL (0.0-0.87); Eosinophils % 5.1 % (0.00-10.9); Hematocrit 35.2 VOL% (35.7-47.0); Hemoglobin 11.3 GM/DL (12.0-16.0); Immature Granulocytes % 1.2 %; Immature Granulocytes Absolute 0.12 #; Lymphocytes % 9.9 % (21.3-54.2); Mean Corpuscular HGB Conc 32.1 GM/DL (32-36); Mean Corpuscular Volume 88.9 FL (87-102); Mean Platelet Volume 10.6 FL (9.6-12.0); Monocytes % 10.9 % (1.7-12.7); Neutrophils % 72.2 % (38.7-73.9); Platelet Count 204 T/CUMM (130-400); Red Blood Count 3.96 MC/CUMM (3.8-5.5); Red Cell Distribution Width 20.6 % (9.3-17.3)
[2021-11-14 14:01] LABS: Bilirubin,Total 0.5 MG/DL (0.20-1.00); Calcium 8.8 MG/DL (8.5-10.1); Osmolality,Calculated 279.7 MOS/KG (273-304); Potassium 4.2 MMOL/L (3.5-5.1); Total Protein 7.6 G/DL (6.4-8.2)
[2021-11-14] MEDS ORDERED: DEXTROSE 50% 25 GM/50 ML SYRINGE IV ONE (16:27)
[2021-11-14] MEDS ORDERED: ALBUTEROL 2.5 MG/3 ML NEB RESP TX PRN (16:32)
[2021-11-14] MEDS ORDERED: ONDANSETRON 4 MG/2 ML VIAL IV PRN (16:32)
[2021-11-14] MEDS ORDERED: GLUCAGON 1 MG VIAL IM PRN (16:32)
[2021-11-14] MEDS ORDERED: DEXTROSE 50% 25 GM/50 ML SYRINGE IV STA (16:32)
[2021-11-14] MEDS ORDERED: DEXTROSE 10% 250 ML BAG IV PRN (16:42)
[2021-11-14] MEDS ORDERED: AZITHROMYCIN INJ 500 MG in SODIUM CHLORIDE 0.9% 250 ML IV ONE (16:46)
[2021-11-14] MEDS ORDERED: ACETAMINOPHEN 325 MG SUPP RECTAL PRN (16:48)
[2021-11-14] MEDS ORDERED: cefTRIAXone 1,000 MG in SODIUM CHLORIDE 0.9% 100 ML IV SCH (18:00)
[2021-11-14 20:01] LABS: Folate 12.46 NG/ML (5.38-24.0)
[2021-11-14 20:05] LABS: Risk Ratio 3.69; VLDL Cholesterol 15.4 MG/DL
[2021-11-14 20:12] LABS: % Iron Saturation 67.7 % (18-50); Thyroid Stimulating Hormone 5.74 uIU/ml (0.358-3.74)
[2021-11-14] MEDS: HEPARIN 5,000 UNIT/1 ML VIAL SUBCUT SCH (21:23)
[2021-11-14] MEDS: PIPERACILLIN/TAZOBACTAM 3,375 MG in SODIUM CHLORIDE 0.9% 100 ML IV SCH (22:38)
[2021-11-15 03:59] LABS: Basophils # 0.1 10*3/uL (0.0-0.2); Basophils % 0.5 % (0.0-0.8); Eosinophils # 0.6 10*3/uL (0.0-0.87); Eosinophils % 4.9 % (0.00-10.9); Hematocrit 34.9 VOL% (35.7-47.0); Hemoglobin 11.5 GM/DL (12.0-16.0); Immature Granulocytes % 0.9 %; Immature Granulocytes Absolute 0.12 #; Lymphocytes # 1.4 10*3/uL (1.4-4.0); Lymphocytes % 10.6 % (21.3-54.2); Mean Corpuscular Volume 86.6 FL (87-102); Monocytes % 10.9 % (1.7-12.7); Neutrophils % 72.2 % (38.7-73.9); Platelet Count 214 T/CUMM (130-400); Red Blood Count 4.03 MC/CUMM (3.8-5.5); Red Cell Distribution Width 20.6 % (9.3-17.3)
[2021-11-15 04:19] LABS: Eosinophils 4 % (0-10); Hypochromia 1+; Lymphocytes 9 % (20-55); Microcytosis 1+; Platelet Estimate Adequate; Segmented Neutrophils 77 % (50-85); Total Cells Counted 100
[2021-11-15 04:29] LABS: Bilirubin,Total 0.5 MG/DL (0.20-1.00); Calcium 9.1 MG/DL (8.5-10.1); Potassium 4.6 MMOL/L (3.5-5.1); Total Protein 7.6 G/DL (6.4-8.2)
[2021-11-15] MEDS: hydrALAZINE 20 MG/1 ML VIAL IV PRN ×3 (06:12→20:40)
[2021-11-15] MEDS ORDERED: LACTATED RINGERS 1,000 ML IV SCH (09:00)
[2021-11-15] MEDS: DEXAMETHASONE 4 MG/1 ML VIAL IV SCH (11:30)
[2021-11-15] MEDS: HEPARIN 5,000 UNIT/1 ML VIAL SUBCUT SCH (11:31)
[2021-11-15] MEDS: PIPERACILLIN/TAZOBACTAM 3,375 MG in SODIUM CHLORIDE 0.9% 100 ML IV SCH (11:32)
[2021-11-15] MEDS: LOSARTAN 50 MG TABLET PO SCH (13:30)
[2021-11-15] MEDS: carvediloL 12.5 MG TABLET PO SCH ×2 (13:30→20:10)
[2021-11-15] MEDS: ZINC GLUCONATE 50 MG TABLET PO SCH (13:31)
[2021-11-15] MEDS: FAMOTIDINE 20 MG TABLET PO SCH (13:31)
[2021-11-15] MEDS: ASCORBIC ACID 500 MG TABLET PO SCH ×2 (13:31→20:10)
[2021-11-15] MEDS: CETIRIZINE 10 MG TABLET PO SCH (13:31)
[2021-11-15] MEDS: CHOLECALCIFEROL 1,000 UNIT TABLET PO SCH (13:31)
[2021-11-15] MEDS: cloNIDine 0.1 MG TABLET PO SCH ×2 (15:33→20:10)
[2021-11-15] MEDS ORDERED: AZITHROMYCIN INJ 250 MG in SODIUM CHLORIDE 0.9% 250 ML IV SCH (17:00)
[2021-11-15] MEDS: ATORVASTATIN 40 MG TABLET PO SCH (20:10)
[2021-11-15] MEDS ORDERED: ATORVASTATIN 40 MG TABLET PO SCH (21:00)
[2021-11-16] MEDS: HEPARIN 5,000 UNIT/1 ML VIAL SUBCUT SCH ×3 (00:29→22:34)
[2021-11-16] MEDS: PIPERACILLIN/TAZOBACTAM 3,375 MG in SODIUM CHLORIDE 0.9% 100 ML IV SCH ×3 (00:29→22:33)
[2021-11-16] MEDS: hydrALAZINE 20 MG/1 ML VIAL IV PRN (04:10)
[2021-11-16] MEDS ORDERED: INFLUENZA VIRUS VACCINE 0.5 ML SYRINGE IM ONE (09:00)
[2021-11-16] MEDS: cloNIDine 0.1 MG TABLET PO SCH ×3 (11:12→22:27)
[2021-11-16] MEDS: carvediloL 12.5 MG TABLET PO SCH ×2 (11:16→22:27)
[2021-11-16] MEDS: DEXAMETHASONE 4 MG/1 ML VIAL IV SCH (11:40)
[2021-11-16] MEDS: LOSARTAN 50 MG TABLET PO SCH (11:53)
[2021-11-16] MEDS: ZINC GLUCONATE 50 MG TABLET PO SCH (11:54)
[2021-11-16] MEDS: CETIRIZINE 10 MG TABLET PO SCH (11:54)
[2021-11-16] MEDS: CHOLECALCIFEROL 1,000 UNIT TABLET PO SCH (11:54)
[2021-11-16] MEDS: ASCORBIC ACID 500 MG TABLET PO SCH ×2 (11:54→22:26)
[2021-11-16] MEDS: FAMOTIDINE 20 MG TABLET PO SCH (11:54)
[2021-11-16] MEDS: ATORVASTATIN 40 MG TABLET PO SCH (22:27)
[2021-11-17] MEDS: hydrALAZINE 20 MG/1 ML VIAL IV PRN ×4 (00:03→22:39)
[2021-11-17 05:39] LABS: Basophils % 0.2 % (0.0-0.8); Hematocrit 33.6 VOL% (35.7-47.0); Immature Granulocytes Absolute 0.27 #; Lymphocytes # 1.1 10*3/uL (1.4-4.0); Lymphocytes % 8.4 % (21.3-54.2); Mean Corpuscular HGB Conc 32.7 GM/DL (32-36); Mean Corpuscular Volume 87.7 FL (87-102); Mean Platelet Volume 10.2 FL (9.6-12.0); Monocytes % 7.8 % (1.7-12.7); Neutrophils % 81.6 % (38.7-73.9); Platelet Count 201 T/CUMM (130-400); Red Blood Count 3.83 MC/CUMM (3.8-5.5); Red Cell Distribution Width 21.2 % (9.3-17.3); White Blood Count 13.6 T/CUMM (4-12)
[2021-11-17 06:09] LABS: Calcium 8.8 MG/DL (8.5-10.1); Osmolality,Calculated 293.3 MOS/KG (273-304); Potassium 4.2 MMOL/L (3.5-5.1)
[2021-11-17] MEDS: DEXAMETHASONE 4 MG/1 ML VIAL IV SCH (10:28)
[2021-11-17] MEDS: HEPARIN 5,000 UNIT/1 ML VIAL SUBCUT SCH ×2 (10:29→22:36)
[2021-11-17] MEDS: cloNIDine 0.1 MG TABLET PO SCH ×3 (10:29→23:57)
[2021-11-17] MEDS: PIPERACILLIN/TAZOBACTAM 3,375 MG in SODIUM CHLORIDE 0.9% 100 ML IV SCH ×2 (10:29→22:37)
[2021-11-17] MEDS: ASCORBIC ACID 500 MG TABLET PO SCH ×2 (10:30→23:58)
[2021-11-17] MEDS: carvediloL 12.5 MG TABLET PO SCH ×2 (10:30→23:58)
[2021-11-17] MEDS: LOSARTAN 50 MG TABLET PO SCH (10:30)
[2021-11-17] MEDS: FAMOTIDINE 20 MG TABLET PO SCH (10:30)
[2021-11-17] MEDS: CETIRIZINE 10 MG TABLET PO SCH (10:31)
[2021-11-17] MEDS: CHOLECALCIFEROL 1,000 UNIT TABLET PO SCH (10:31)
[2021-11-17] MEDS: ZINC GLUCONATE 50 MG TABLET PO SCH (10:31)
[2021-11-17] MEDS: ATORVASTATIN 40 MG TABLET PO SCH (23:58)
[2021-11-18] MEDS: hydrALAZINE 20 MG/1 ML VIAL IV PRN ×4 (04:16→23:58)
[2021-11-18] MEDS: cloNIDine 0.1 MG TABLET PO SCH ×3 (09:06→20:14)
[2021-11-18] MEDS: PIPERACILLIN/TAZOBACTAM 3,375 MG in SODIUM CHLORIDE 0.9% 100 ML IV SCH ×2 (09:08→20:06)
[2021-11-18] MEDS: HEPARIN 5,000 UNIT/1 ML VIAL SUBCUT SCH ×2 (09:08→20:06)
[2021-11-18] MEDS: carvediloL 12.5 MG TABLET PO SCH ×2 (09:44→20:14)
[2021-11-18] MEDS: LOSARTAN 50 MG TABLET PO SCH (09:44)
[2021-11-18] MEDS: CETIRIZINE 10 MG TABLET PO SCH (09:45)
[2021-11-18] MEDS: ZINC GLUCONATE 50 MG TABLET PO SCH (09:45)
[2021-11-18] MEDS: ASCORBIC ACID 500 MG TABLET PO SCH ×2 (09:45→20:14)
[2021-11-18] MEDS: FAMOTIDINE 20 MG TABLET PO SCH (09:45)
[2021-11-18] MEDS: CHOLECALCIFEROL 1,000 UNIT TABLET PO SCH (09:45)
[2021-11-18] MEDS: ATORVASTATIN 40 MG TABLET PO SCH (20:14)
[2021-11-19 06:51] LABS: Calcium 9.3 MG/DL (8.5-10.1); Osmolality,Calculated 301.3 MOS/KG (273-304); Potassium 4.4 MMOL/L (3.5-5.1)
[2021-11-19] MEDS: hydrALAZINE 20 MG/1 ML VIAL IV PRN (10:12)
[2021-11-19] MEDS: HEPARIN 5,000 UNIT/1 ML VIAL SUBCUT SCH (10:13)
[2021-11-19] MEDS: carvediloL 12.5 MG TABLET PO SCH (10:15)
[2021-11-19] MEDS: LOSARTAN 50 MG TABLET PO SCH (10:15)
[2021-11-19] MEDS: cloNIDine 0.1 MG TABLET PO SCH (10:15)
[2021-11-19] MEDS: ASCORBIC ACID 500 MG TABLET PO SCH (10:16)
[2021-11-19] MEDS: CHOLECALCIFEROL 1,000 UNIT TABLET PO SCH (10:16)
[2021-11-19] MEDS: ZINC GLUCONATE 50 MG TABLET PO SCH (10:16)
[2021-11-19] MEDS: FAMOTIDINE 20 MG TABLET PO SCH (10:16)
[2021-11-19] MEDS: CETIRIZINE 10 MG TABLET PO SCH (10:17)
[2021-11-19] MEDS: PIPERACILLIN/TAZOBACTAM 3,375 MG in SODIUM CHLORIDE 0.9% 100 ML IV SCH (10:18)
[2021-11-19] MEDS ORDERED: MORPHINE 2 MG/1 ML SYRINGE IV PRN (12:00)
[2021-11-19] MEDS ORDERED: LORazepam 2 MG/1 ML VIAL IV PRN (12:02)
[2021-11-21] MEDS ORDERED: cloNIDine 0.2 MG/24 HR PATCH TRANSDERM SCH (09:00)
[2021-11-22 09:06] VITALS: BP 170/88
== END 2021-11-22 12:25 | disposition hospice, inpatient (51) | DRG 70 ==
LOC: SUATTDRO → N.ED 13:14 → N.EDINP 13:14 → N.5E 11-15 18:25 → SUATTDRO 11-18 13:31
PROVIDERS: ADMIT Internal Medicine; ATTEND Hospitalist

== ENCOUNTER 2021-11-22 12:29 | Inpatient (IN) ==
[2021-11-22] MEDS ORDERED: LORazepam 2 MG/1 ML VIAL IV PRN (12:50)
[2021-11-22] MEDS ORDERED: MORPHINE 2 MG/1 ML SYRINGE IV PRN (12:51)
[2021-11-22] MEDS: MORPHINE 4 MG/1 ML VIAL IV PRN ×2 (14:28→20:32)
[2021-11-23] MEDS: MORPHINE 4 MG/1 ML VIAL IV PRN (06:15)
[2021-11-24] MEDS: MORPHINE 4 MG/1 ML VIAL IV PRN ×2 (06:33→17:03)
[2021-11-25] MEDS: MORPHINE 4 MG/1 ML VIAL IV SCH ×5 (15:24→23:33)
[2021-11-25] MEDS: LORazepam 2 MG/1 ML VIAL IV SCH ×5 (15:26→23:34)
[2021-11-26] MEDS: MORPHINE 4 MG/1 ML VIAL IV SCH ×13 (00:15→23:51)
[2021-11-26] MEDS: LORazepam 2 MG/1 ML VIAL IV SCH ×12 (01:27→23:09)
[2021-11-27] MEDS: LORazepam 2 MG/1 ML VIAL IV SCH ×10 (01:45→23:31)
[2021-11-27] MEDS: MORPHINE 4 MG/1 ML VIAL IV SCH ×8 (02:58→22:30)
[2021-11-28] MEDS: MORPHINE 4 MG/1 ML VIAL IV SCH ×12 (01:49→22:09)
[2021-11-28] MEDS: LORazepam 2 MG/1 ML VIAL IV SCH ×12 (01:51→23:26)
[2021-11-29] MEDS: MORPHINE 4 MG/1 ML VIAL IV SCH ×7 (00:06→13:45)
[2021-11-29] MEDS: LORazepam 2 MG/1 ML VIAL IV SCH ×7 (01:21→14:53)
[2021-11-29 10:23] VITALS: BP 88/42
== END 2021-11-29 15:08 | disposition expired | DRG 951 ==
LOC: N.5E 12:29 → SUATTDRO 12:29
PROVIDERS: ADMIT Internal Medicine; ATTEND Hospitalist